=== PATIENT | male | born 1950 | race Caucasian/White ===

== ENCOUNTER 2018-04-14 06:47 | Inpatient (IN) ==
[~2018-04-14 06:47] MED LIST: Metoprolol Tartrate 25 MG Tablet PO SCH
[2018-04-14] MEDS ORDERED: Iohexol 350 MG/ML 100 ML Vial (for Cath Lab) IV.SIG ONE (06:48)
[2018-04-14 07:46] LABS: Baso # (Auto) 0.1 th/mm3 (0.0-0.2); Baso % (Auto) 1.1 % (0.0-2.0); Eos # (Auto) 0.3 th/mm3 (0.0-0.4); Hematocrit 41.5 % (39.0-51.0); Hemoglobin 14.4 gm/dL (13.0-17.0); Lymph # (Auto) 1.3 th/mm3 (1.0-4.8); Lymph % (Auto) 16.1 % (9.0-44.0); Mean Corpuscular HGB Conc 34.7 % (32.0-36.0); Mean Corpuscular Hemoglobin 30.6 pg (27.0-34.0); Mean Platelet Volume 8.4 fL (7.0-11.0); Mono # (Auto) 0.7 th/mm3 (0.0-0.9); Mono % (Auto) 8.7 % (0.0-8.0); Neut # (Auto) 5.4 th/mm3 (1.8-7.7); Neut % (Auto) 70.1 % (16.0-70.0); Platelet Count 274 th/mm3 (150-450); Red Blood Count 4.71 mil/mm3 (4.50-5.90); Red Cell Distribution Width 13.3 % (11.6-17.2); White Blood Count 7.8 th/mm3 (4.0-11.0)
[2018-04-14 07:56] LABS: Activated Partial Thrombo Time 26.7 sec (24.3-30.1); INR 1.1 Ratio
[2018-04-14 08:02] LABS: Calcium 8.9 mg/dL (8.5-10.1); Carbon Dioxide 28.3 meq/L (21.0-32.0); Potassium 4.2 meq/L (3.5-5.1)
[2018-04-14] MEDS ORDERED: Heparin/NS PF Inj 500 ML ONE (09:12)
[2018-04-14] MEDS ORDERED: fentaNYL Citrate Inj 100 MCG/2 ML Ampul ONE (09:12)
[2018-04-14] MEDS ORDERED: Heparin 10,000 UNITS/10 ML Vial (for IV use) ONE (09:13)
--- NOTE | 2018-04-14 10:35 | CATHPROC ---
[employer] HIS Report Study Information Study Number Admission Scheduled Start Study Start [id number] Apr 14 2018 6:47AM 04/14/2018 Apr 14 2018 7:46AM [facility] Service Cath Endovascular Study Admit Source Facility Department Other [facility] - [facility] Physician and Clinical Staff Initial Nitesh Herzog Training Development Director Sherly Brown RN Training Development Director Jennifer Broderick,ONEIL Recorder Karen Mendoza RCIS ScrGómez Barney,RT(R) Procedures Performed Procedure Location (Site) Vessel Name Coronary Angiograms LCA Left Coronary Coronary Angiograms RCA Right Coronary L Heart Cath Wire insertion Radial (right) Radial Art. Equipment Time Farm Or Ranch Animal Caretaker Description Size Mfg Part Number Used/Scraped TRANSDUCER, TRUWAVE [id number] 09:21 OROZCO DILL * Used W/[employer] *[id number] *[id number] 09:21 [employer] BLANKET,WARM AIR CCL * Used *[id number] 07:50 [employer] BLANKET,WARM AIR CCL * Used *[id number] 07:50 [employer] PACK, CCL CUSTOM * Used *[id number] 09:21 [employer] SUPPORT, ARTERIAL ADULT 80095 *[id number] Used 07:50 [employer] SUPPORT, ARTERIAL ADULT 56085 *[id number] Used [id number] 09:39 [employer] JL 3.5 DXTERITY CATHETER FR 5 Used *[id number] 09:51 [employer]/AVE EBU 3.5 Z2 GUIDE CATHETER FR 6 Used *[id number] BAND, RADIAL COMPRESSION TR [id number] 10:11 [employer] MEDICAL 29CM Used LARGE 29 *[id number] 07:50 [employer] MEDICAL WIRE, EXCHANGE 260CM 3MMJ 260CM Used *[id number] 07:50 NAMIC MANIFOLD, 4 PORT * Used *[id number] 09:21 NAMIC MANIFOLD, 4 PORT * Used *[id number] 09:21 [employer] OMNIPAQUE, 350 MG, 150ML 150ML [id number] Used SHEATH, FR6 TRANSRADIAL [id number] 07:50 [employer]ness[employer] MEDICAL FR 6 Used SLENDER 10CM *[id number] 09:51 [employer]OL[employer] PRIME WIRE, VERRATA 185CM 185CM Used *[id number] Equipment Model, Serial, Lot Number and Expiration Data Description Model Number Serial Number Lot Number Expiration Date GIANCARLO GOULD 185CM 26329 [id number] 03-05-2021 History: Allergies Allergy Reaction No Known Allergies History: Risk Factors Family History of Hypertension Dyslipidemia Previous [place] Previous Heart Failure Premature CAD Yes Yes No No No Prior Valve Prior PCI Prior CABG Surgery No No No Cerebrovascular Peripheral Artery Chronic Lung On Dialysis Diabetes Disease Disease Disease No No No No No History: Stress Tests Stress or Imaging Studies Performed No History: Other Current Smoker Method Years Used Yes Cigars 1 Labs Hgb (g/dl) Hct (%) WBC (l/cumm) Platelets (thousands) 11.60-17.00 35.00-51.00 4.00-11.00 150.00-450.00 14.0 41 4.7 244 Glucose (mg/dl) BUN (mg/dl) Creatinine (mg/dl) BUN:Creatinine (1:x) 74.00-106.00 7.00-18.00 0.50-1.30 10.00-20.00 116 14 1.0 14 Na (meq/l) K (meq/l) 136.00-145.00 3.50-5.10 140 4.2 INR (PTT:PT) 0.90-1.10 1.1 CPK-MB (ng/ML) 0.50-3.60 Not Drawn Medication Medication Total Dose (Bolus/Oral) Medication Total Dosage/Unit 1% XYLOCAINE 20 mL FENTANYL 25 mcg HEPARIN 4600 units RADIAL COCKTAIL 5 mL (Bolus) VERSED 0.5 mg Medications (Bolus/Oral) Medication Time Given Dosage/Unit Administered By Reason VERSED 04/14/2018 9:26:40 AM 0.5 mg Sherly Brown 0.5 mg VERSED given in lab by Sherly Brown, ONEIL via Peripheral IV. Ordered by Nitesh Rivera FENTANYL 04/14/2018 9:27:29 AM 25 mcg Sherly Brown 25 mcg FENTANYL given in lab by Sherly Brown, ONEIL via Peripheral IV. Ordered by Nitesh Rivera. 1% XYLOCAINE 04/14/2018 9:27:55 AM 20 mL Nitesh Rivera 20 mL 1% XYLOCAINE given in lab by Nitesh Rivera in Right Radial via Subcutaneous. Ordered by Nitesh Fields Ntg 200mcg Verapamil 2.5mg Heparin RADIAL COCKTAIL 04/14/2018 9:29:55 AM 5 mL (Bolus) Nitesh Rivera 3000U 5 mL (Bolus) RADIAL COCKTAIL given in lab by Nitesh Rivera via Radial. Using [Solution Name]. O rdered by Nitesh Rivera Reason: Ntg 200mcg Verapamil 2.5mg Heparin 3000U. HEPARIN 04/14/2018 9:53:50 AM 4600 units Sherly Brown 4600 units HEPARIN given in lab by Sherly Brown, RN via Peripheral IV. Ordered by Duran Rivera Medication (Drip) Medication Time Given Dosage/Unit Concentration/Unit Diluent (ml) Solution IV Solutions 04/14/2018 9:12:03 AM 50 mL (IV) 500 NaCl .9 Patient arrived on IV Solutions via Peripheral IV. Pump/Drip Flow using NaCl .9. Initial Case Assessment Cardiovascular HR NIBP Chest Pain 66 143/81 0 Edema Present Skin color Skin None Normal Warm Circulatory - Right Pulses Dorsalis Pedis Femoral Radial 2 2 2 Scale (0,1,2,3,4,d) Circulatory - Left Pulses Dorsalis Pedis Femoral Radial 2 2 Scale (0,1,2,3,4,d) Neurological State Oriented to time-place- Alert Moves all extremities person Respiration - General Respiration Rate SpO2 (%) (B/min) 20 96 Final Case Assessment Cardiovascular HR NIBP Chest Pain 67 109/60 0 Edema Present Skin color Skin None Normal Warm Circulatory - Right Pulses Dorsalis Pedis Femoral Radial 2 2 2 Scale (0,1,2,3,4,d) Circulatory - Left Pulses Dorsalis Pedis Femoral Radial 2 2 Scale (0,1,2,3,4,d) Neurological State Oriented to time-place- Alert Moves all extremities person Respiration - General Respiration Rate SpO2 (%) (B/min) 20 96 Chronological Log Time Study Chronological Log 9:05:21 Patient arrived via Bed. 9:05:22 Patient Name, D.O.B, / Armband Verified By R.N. 9:08:56 Consent signed by the physician and the patient and verified by the [facility] staff. 9:09:00 Verbal Stimulation=2 Physical Stimulation=2 Airway=2 Respiration=2 TOTAL=8. (0=absent, 1=li mited, 2=present) 9:10:09 Allens test performed on the right radial and ulnar artery. 9:10:20 Patient has been NPO for More than 6Hrs. 9:10:24 Patient Warmer Placed on the Table. 9:10:35 A # 20 IV was noted in the Antecubital (left). Grade = 0 Vitals capture started with the following parameters, Patient=Adult, Interval=5 min, Initial Pr wzwbua=116 mmHg, 9:10:52 Deflation Rate=5 mmHg, Cuff placed on Right Arm 9:11:34 HR=68 bpm, XGSJ=278/81 mmhg, SpO2=99.0 %, Resp=8 B/min, Pain=0, Kassidy=10, Carter=2 9:12:03 Patient arrived on IV Solutions via Peripheral IV. Pump/Drip Flow using NaCl .9. 9:12:44 History and physical on the chart or being dictated. Assessment: Initial Case, HR=66 BPM, KRPS=041/81 mmhg, Chest Pain=0, Edema=None, Color=Normal, Skin = Warm Right Pulses: Nick Ped=2, Femoral=2, Radial=2 9:12:46 Left Pulses: Nick Ped=2, Femoral=2 Neurological: State=Alert, Ox3, JUNG Respiration: Resp=20 B/min, SpO2=96 % 9:14:31 Right Radial and groin(s) prepped with 2% chlorhexidine, and draped after a 3 min. waiting time. 9:16:31 HR=71 bpm, OLTR=719/83 mmhg, SpO2=99.0 %, Resp=20 B/min, Pain=0, Kassidy=10, Carter=2 9:19:42 Reference ECG taken 9:21:37 HR=69 bpm, KQYI=125/66 mmhg, SpO2=97.0 %, Resp=15 B/min, Pain=0, Kassidy=10, Carter=2 9:23:34 Pressure channel 1 zeroed. 9:23:56 MD arrived. Time Out. Correct patient, correct procedure, correct physician, labs, allergies, and equipment verified with radiographer cardiac catheterization 9:26:18 team present. Fire risk assesment completed (see hard stop sheet for coding). Time Out Concu rred by MD and individual staff in procedure. 9:26:36 HR=72 bpm, OPGB=006/81 mmhg, SpO2=97.0 %, Resp=19 B/min, Pain=0, Kassidy=10, Carter=2 9:26:40 0.5 mg VERSED given in lab by Sherly Brown, RN via Peripheral IV. Ordered by Castro Rivera 9:26:43 Case Start 9::29 25 mcg FENTANYL given in lab by Sherly Brown, RN via Peripheral IV. Ordered by Nitesh Rviera 20 mL 1% XYLOCAINE given in lab by Nitesh Rivera in Right Radial via Subcutaneous. Ordere d by Miguel : Nitesh Reyes 9:28:22 Access site was Radial Artery. A SHEATH, FR6 TRANSRADIAL SLENDER 10CM FR 6 was advanced into the Radial (right) using the Perc utaneous 9:29:16 technique. 5 mL (Bolus) RADIAL COCKTAIL given in lab by Nitesh Rivera via Radial. Using [Solution Na me]. Ordered by :: Nitesh Rivera Reason: Ntg 200mcg Verapamil 2.5mg Heparin 3000U. 9:31:37 HR=79 bpm, PYCH=609/72 mmhg, SpO2=98.0 %, Resp=10 B/min, Pain=0, Kassidy=10, Carter=2 9:34:31 A WIRE, EXCHANGE 260CM 3MMJ 260CM was inserted via Radial (right). A JR 4.0 INFINITI CATHETER FR 5 was advanced over a wire. OMNIPAQUE, 350 MG, 150ML 150ML was us ed for 9:34:48 injections. 9:35:14 Wire removed Recorded Pressure: LV, HR=75, Condition=Condition 1 9:36:00 (Left Ventricle) LV 119/-7/6 9:36:32 HR=71 bpm, XUAP=987/69 mmhg, SpO2=94.0 %, Resp=42 B/min, Pain=0, Kassidy=10, Carter=2 Recorded Pressure: LV, Ao, HR=72, Condition=Condition 1 9:36:36 (Left Ventricle) LV 121/3/-2, (Aorta) Ao 95/53/72 Recorded Pressure: Ao, HR=73, Condition=Condition 1 9:37:25 (Aorta) Ao 94/56/75 9:37:40 The RCA was injected and visualized at various angles. OMNIPAQUE, 350 MG, 150ML 150ML used. After removing the current catheter a JL 3.5 DXTERITY CATHETER FR 5 was advanced over a WIRE, E XCHANGE 260CM 9:38:25 3MMJ 260CM. 9:40:59 The LCA was injected and visualized at various angles. OMNIPAQUE, 350 MG, 150ML 150ML used. 9:41:29 HR=72 bpm, LFRS=084/75 mmhg, SpO2=96.0 %, Resp=18 B/min, Pain=0, Kassidy=10, Carter=2 9:46:32 HR=76 bpm, AQCL=282/68 mmhg, SpO2=96.0 %, Resp=19 B/min, Pain=0, Kassidy=10, Carter=2 9:51:33 HR=73 bpm, IFBL=621/65 mmhg, SpO2=96.0 %, Resp=17 B/min, Pain=0, Kassidy=10, Carter=2 After removing the current catheter a EBU 3.5 Z2 GUIDE CATHETER FR 6 was advanced over a WIRE, EXCHANGE 9:52:16 260CM 3MMJ 260CM. 9:53:50 4600 units HEPARIN given in lab by Sherly Brown, ONEIL via Peripheral IV. Ordered by Nitesh Arenas 9:55:55 Flow Wire was was placed in the LAD Mid. The FFR measures ~FFR~ percent. The IFR measures 0. 9 Percent. 9:56:34 HR=70 bpm, UMZE=923/64 mmhg, SpO2=95 %, Resp=12 B/min, Pain=0, Kassidy=10, Carter=2 10:01:31 HR=66 bpm, RUNG=283/59 mmhg, SpO2=95.0 %, Resp=14 B/min, Pain=0, Kassidy=10, Carter=2 10:06:30 HR=72 bpm, EOMV=726/62 mmhg, SpO2=94 %, Resp=12 B/min, Pain=0, Kassidy=10, Carter=2 10:09:37 The PRIME WIRE, VERRATA 185CM 185CM was removed. 10:10:09 Wire removed 10:10:14 Catheter was removed 10:11:33 HR=71 bpm, WWVH=452/60 mmhg, SpO2=94.0 %, Resp=16 B/min, Pain=0, Kassidy=10, Carter=2 10:14:57 Case End (Physician broke scrub) 10:15:02 No case complications noted. Assessment: Final Case, HR=67 BPM, IBAU=305/60 mmhg, Chest Pain=0, Edema=None, Color=Normal, S kin = Warm Right Pulses: Nick Ped=2, Femoral=2, Radial=2 10:15:22 Left Pulses: Nick Ped=2, Femoral=2 Neurological: State=Alert, Ox3, JUNG Respiration: Resp=20 B/min, SpO2=96 % 10:15:56 Cine recording checked. 10:16:32 HR=68 bpm, JXRM=626/61 mmhg, SpO2=96.0 %, Resp=17 B/min, Pain=0, Kassidy=10, Carter=2 10:17:28 Vitals capture stopped. 10:17:52 Sheath removed Radial Compression Device Used. 20 mLs of air placed in BAND, RADIAL COMPRESSION TR LARGE 29 2 9CM. Affected 10:18:23 hand 97 % O2 saturation. 10:22:01 A Left Heart Cath was performed. 10:28:08 Patient moved to [facility] End Study - Contrast Media Used In Study Contrast Total Opened (mL) Total Used (mL) Total Wasted (mL) Omnipaque 100 100 0 End Study - Maximum Contrast Load Max Contrast Load (mL) 385.5 End Study - Radiation Exposure Fluoro Time (minutes) 4.7 End Study - Patient Disposition Complications Transferred To No [facility]
[2018-04-14] MEDS ORDERED: Heparin Drip 25,000 UNIT/250 ML BAG IV.CONT PRN (10:45)
--- NOTE | 2018-04-14 11:11 | MB ---
cc: Nitesh Rivera DO DATE: 04/14/2018 REASON FOR CONSULTATION: Multivessel coronary artery disease. HISTORY OF PRESENT ILLNESS: Amrik Barnes is a pleasant 67-year-old male who sees my partner, Dr. Wiley in the office and presented for elective cardiac catheterization as he has had significant chest pain. He states that around 2 weeks ago, he had chest burning and tightness in the middle of the night for 15 or 20 minutes, not like his typical indigestion, but this finally went away. He had a similar type episode around a week after this and then, 4-5 days ago, he had burning while walking his dogs. He saw Dr. Wiley and he was referred to me as there was concern for typical angina. He underwent cardiac catheterization today and was found to have multivessel disease and due to the significance of his disease, I felt that he should be admitted for a heparin drip and evaluation by CT surgery. In seeing him, he currently denies chest pain or shortness of breath and is hemodynamically stable. PAST MEDICAL HISTORY: 1. Coronary artery disease. 2. Unstable angina. 3. Hyperlipidemia. 4. Hypertension. 5. Hypothyroidism. 6. Prediabetes. 7. Bifascicular block with right bundle branch block/left anterior fascicular block. 8. Migraines. PAST SURGICAL HISTORY: Cardiac catheterization (04/14/2018) with left main 30%, proximal LAD 70%, left circumflex subtotally occluded with multiple obtuse marginals filling via collaterals, RCA 40%, ramus 70%. ALLERGIES: NO KNOWN DRUG ALLERGIES. MEDICATIONS: 1. Aspirin 81 mg daily. 2. Crestor 20 mg daily. 3. Metoprolol succinate 25 mg daily. 4. Norvasc 5 mg daily. 5. Amitriptyline 25 mg daily. 6. Synthroid 25 mcg daily. 7. Nitro sublingual as needed. FAMILY HISTORY: Grandfather had a myocardial infarction at the age of 93. He has multiple brothers who have undergone stents and bypass in their late 60s and early 70s. SOCIAL HISTORY: The patient drinks a few times a week. He will rarely have a cigar. REVIEW OF SYSTEMS: Fourteen systems were reviewed including osteopathic pertinent positives and negatives as above, otherwise negative. PHYSICAL EXAMINATION: VITAL SIGNS: Temperature 98.0, heart rate 70, blood pressure 142/78, respirations 16, pulse oximetry 98% on room air. GENERAL: The patient appears well, in no acute distress. Alert, awake and oriented x 3. HEENT: Extraocular muscles intact. Mucous membranes moist. NECK: Supple with no JVD at 45 degrees. No carotid bruits heard bilaterally. Carotid upstroke is brisk in nature. HEART: Regular rate and rhythm. Positive first and second heart sounds, but no known murmurs, gallops or rubs. LUNGS: Clear to auscultation bilaterally. No wheezes, rales or rhonchi. ABDOMEN: Soft, nontender, nondistended. No organomegaly noted. EXTREMITIES: Show no clubbing, cyanosis or edema. Femoral and distal pulses intact bilaterally. NEUROLOGIC: No focal deficits. SKIN: Warm, dry and intact. OSTEOPATHIC: No kyphoscoliosis, lordosis or paraspinal tender points. LABORATORY DATA: Hemoglobin 14.4, hematocrit 41.5, platelets 274. Potassium 4.2, BUN 14, creatinine 1.03. EKG: Electrocardiogram (04/14/2018 at 0746): Sinus rhythm, left axis deviation, right bundle branch block, left anterior fascicular block. IMPRESSIONS: 1. Unstable angina. 2. Multivessel coronary artery disease. 3. History of migraines. 4. Bifascicular block. 5. Hyperlipidemia. 6. Hypertension. RECOMMENDATIONS: 1. Mr. Barnes presented with unstable angina for an elective cardiac catheterization. Because he was found to have multivessel disease, an overall concern for a subtotal occlusion of his left circumflex, which supplies multiple obtuse marginals, I feel that he should be admitted to the hospital and placed on a heparin drip. 2. CT surgery has been consulted for consideration of coronary artery bypass grafting. 3. He does have an echo in the office recently and we will add that to the chart for further information. 4. Further recommendations will be made based on the hospital course. Thank you for allowing me to see Amrik Barnes. If there are any questions, please do not hesitate to call. Nitesh Rivera, VGP/DL , 10:43 AM , 11:09 AM
--- NOTE | 2018-04-14 15:47 | P.PNCA ---
- Note Subjective/Hospital Course: pt seen and evaluated / full consult to follow multivessel disease / scheduled for surgery 04/16 sts discussed with pt RISK SCORES About the STS Risk Calculator Procedure: CAB Only Risk of Mortality: 0.781% Morbidity or Mortality: 8.369% Long Length of Stay: 2.694% Short Length of Stay: 60.895% Permanent Stroke: 0.727% Prolonged Ventilation: 5.484% DSW Infection: 0.254% Renal Failure: 1.576% Reoperation: 3.942% Objective: Vital Signs - 24 hr 04/14/18 07:30 04/14/18 10:44 04/14/18 14:29 Temperature 98 F 98.7 F Pulse Rate 70 69 Respiratory Rate 16 18 Blood Pressure 142/78 H 136/79 Pulse Oximetry 98 97 99 04/14/18 15:27 Temperature 98.7 F Pulse Rate 71 Respiratory Rate 20 Blood Pressure 131/77 Pulse Oximetry 98 Labs: Laboratory Results - last 12 hr 04/14/18 04/14/18 04/14/18 07:27 07:27 07:27 WBC 7.8 RBC 4.71 Hgb 14.4 Hct 41.5 MCV 88.0 MCH 30.6 MCHC 34.7 RDW 13.3 Plt Count 274 MPV 8.4 Neut % (Auto) 70.1 H Lymph % (Auto) 16.1 Rooks % (Auto) 8.7 H Eos % (Auto) 4.0 Baso % (Auto) 1.1 Neut # (Auto) 5.4 Lymph # (Auto) 1.3 Rooks # (Auto) 0.7 Eos # (Auto) 0.3 Baso # (Auto) 0.1 WBC Differential . Differential Comment Auto diff final PT 11.0 INR 1.1 APTT 26.7 Sodium 140 Potassium 4.2 Chloride 105 Carbon Dioxide 28.3 Anion Gap 7 BUN 14 Creatinine 1.03 Estimated GFR 72 L Random Glucose 116 H Calcium 8.9 Result Diagrams: 04/14/18 07:27 04/14/18 07:27
[2018-04-14] MEDS ORDERED: Dextrose 50% in Water 50 ML Vial IV.PUSH PRN (16:01)
[2018-04-14] MEDS ORDERED: Insulin Regular (For Infusion) 100 UNIT in Sodium Chlor 0.9% Inj 99 ML IV.CONT PRN (16:01)
[2018-04-14] MEDS ORDERED: Sodium Chloride 0.9% Irr Bot 500 ML, ceFAZolin Inj 500 MG IRRIGATION SCH ×2 (16:15)
[2018-04-14] MEDS ORDERED: Chlorhexidine 4% Topical 120 APPLIC/120 ML Bottle TOPICAL SCH (16:15)
[2018-04-14] MEDS ORDERED: Sodium Chlor 0.9% Inj 77.5 ML, Papaverine Inj 60 MG, Nitroglycerin Inj 100 MCG, dilTIAZ... IRRIGATION SCH ×3 (16:15)
--- NOTE | 2018-04-14 16:43 | ECG ---
Date Performed: 04/14/2018 Time Performed: 07:46:24 PTAGE: 67 years EKG: Sinus rhythm . Left axis deviation RBBB with left anterior fascicular block Left ventricular hypertrophy Abnormal ECG NO PREVIOUS TRACING DOCTOR: Steve Mireles Interpretating Date/Time 04/14/2018 16:40:19
[2018-04-14] MEDS ORDERED: ceFAZolin Inj 2,000 MG in Sodium Chlor 0.9% Inj 80 ML IV.SIG SCH (17:00)
[2018-04-14 18:30] LABS: Bilirubin,Urine Negative (Negative); Clarity,Urine Clear (Clear); Color,Urine Straw (Yellw/Straw); Glucose,Urine (UA) Negative (Negative); Leukocyte Esterase,Urine Negative (Negative); Mucus,Urine Few /lpf (Occasional); Nitrite,Urine Negative (Negative); Specific Gravity,Urine 1.021 (1.002-1.035)
[2018-04-14] MEDS: Amitriptyline 25 MG Tablet PO SCH (18:37)
--- NOTE | 2018-04-14 20:45 | XR ---
EXAM DATE: 04/14/2018 8:39 PM EDT AGE/SEX: 67 years / Male INDICATIONS: Evaluate for pneumonia, pneumothorax and communicable disease. Pre-op, cardic surgery. CLINICAL DATA: This is the patient's initial encounter. Patient reports that signs and symptoms have been present for 1 day and indicates a pain score of 0/10. MEDICAL/SURGICAL HISTORY: None. None. COMPARISON: No prior exams available for comparison. FINDINGS: PA and lateral views of the chest demonstrate the lungs to be symmetrically aerated without evidence of mass, infiltrate or effusion. The cardiomediastinal contours are unremarkable. Osseous structures are intact. CONCLUSION: No evidence of acute cardiopulmonary disease. Electronically signed by: Natalio Olvera MD 04/14/2018 8:44 PM EDT
--- NOTE | 2018-04-14 20:46 | US ---
EXAM DATE: 04/14/2018 8:10 PM EDT AGE/SEX: 67 years / Male INDICATIONS: Pre-op for cardiac surgery. CLINICAL DATA: This is the patient's initial encounter. Patient reports that signs and symptoms have been present for 1 day and indicates a pain score of 0/10. MEDICAL/SURGICAL HISTORY: Hypothyroidism. Hypertension. Angina. CAD. Hyperlipidemia. Pre-lisbeth betes. Migraines. . Cardiac catheterization. COMPARISON: [facility], US ECHOCARDIOGRAM, 10/14/2016. . VELOCITY PARAMETERS: ICA/CCA Ratio: Right 1.4 , Left 1.7 ICA: Right 157 cm/sec, Left 214 cm/sec CCA: Right 111 cm/sec, Left 124 cm/sec ECA: Right 87 cm/sec, Left 107 cm/sec Vertebral: Right 75 cm/sec antegrade, Left 125 cm/sec antegrade FINDINGS: Right Carotid: No significant plaque is visualized.The waveforms are within normal limits. Left Carotid: No significant plaque is visualized. The waveforms are within normal limits. Other: None. CONCLUSION: 1. Right Internal Carotid Artery: No significant plaque or narrowing. 2. Left Internal Carotid Artery: No significant plaque or narrowing. Electronically signed by: Natalio Olvera MD 04/14/2018 8:44 PM EDT
--- NOTE | 2018-04-14 20:51 | US ---
EXAM DATE: 04/14/2018 8:14 PM EDT AGE/SEX: 67 years / Male INDICATIONS: Pre-op for cardiac surgery. CLINICAL DATA: This is the patient's initial encounter. Patient reports that signs and symptoms have been present for 1 day and indicates a pain score of 0/10. MEDICAL/SURGICAL HISTORY: Hypothyroidism. Hypertension. Angina. CAD. Hyperlipidemia. Pre-lisbeth betes. . Cardiac stent. COMPARISON: No prior exams available for comparison. TECHNIQUE: Venous ultrasound of both lower extremities was performed from the inguinal ligament to t he proximal calf. Real-time, color Doppler and spectral tracing, compression and augmentation techni ques were used. FINDINGS: Right Leg: Normal compression of the deep venous system from the inguinal region to the proximal alcon f. No echogenic clot is seen. Normal response of the venous system to augmentation and respiration. Left Leg: Normal compression of the deep venous system from the inguinal region to the proximal calf . No echogenic clot is seen. Normal response of the venous system to augmentation and respiration. Other: None. CONCLUSION: Negative study. No venous thrombosis of either lower extremity. Electronically signed by: Natalio Olvera MD 04/14/2018 8:49 PM EDT
--- NOTE | 2018-04-14 20:52 | US ---
EXAM DATE: 04/14/2018 8:18 PM EDT AGE/SEX: 67 years / Male INDICATIONS: Pre-op for cardiac surgery. CLINICAL DATA: This is the patient's initial encounter. Patient reports that signs and symptoms have been present for 1 day and indicates a pain score of 0/10. MEDICAL/SURGICAL HISTORY: Hypothyroidism. Hypertension. Angina. . Cardiac stent. COMPARISON: No prior exams available for comparison. MEASUREMENTS: RIGHT THIGH: Proximal:__6 mm Mid:__ 3 mm Distal:__Non-visualized LEFT THIGH: Proximal:__2 mm Mid:__2 mm Distal:__Non-visualized RIGHT CALF: Proximal:__5 mm Mid:__4 mm Distal:__4 mm LEFT CALF: Proximal:__2 mm Mid:__3 mm Distal:__2 mm FINDINGS: The venous system of the lower extremities are patent by color Doppler imaging. Measurements of the leg veins (in mm) are listed above. CONCLUSION: Greater saphenous vein measurements as above. Electronically signed by: Natalio Olvera MD 04/14/2018 8:51 PM EDT
[2018-04-14 21:54] LABS: Hemoglobin A1c 5.6 % (4.3-6.0)
[2018-04-14] MEDS: Mupirocin 2% Nasal Oint Topical Syringe EACH NARE SCH (22:30)
--- NOTE | 2018-04-14 23:27 | MA ---
cc: Nitesh Rivera Vincent G DO DATE: 04/14/2018 PROCEDURE: Left heart catheterization, coronary angiogram, moderate sedation 40 minutes, IFR LAD. PREPROCEDURE DIAGNOSIS: Unstable angina on multiple antianginals, suspected significant coronary artery disease. POSTPROCEDURE DIAGNOSIS: Multivessel coronary artery disease, unstable angina. MEDICATIONS: 1. Versed 0.5 mg. 2. Fentanyl 25 mcg. 3. Verapamil 2.5 mg. 4. Nitro 200 mcg. 5. Heparin 6600 units. CONTRAST USED: 100 mL FLUOROSCOPY: 4.7 minutes. MODERATE SEDATION: 40 minutes. FRAILTY SCORE: 3. ESTIMATED BLOOD LOSS: 10 mL PROCEDURAL SUMMARY: Amrik Barnes is a pleasant 67-year-old male who sees my partner, Dr. Wiley, in the office and was recommended cardiac catheterization due to typical angina on multiple antianginals. Risks, benefits and alternatives were explained to him and he consented as such. He was brought to the lab and prepped in the usual sterile fashion. The right radial artery was accessed using a modified Seldinger technique and placement of a 5/6 Argentine slender sheath. This was easily aspirated and flushed. A JR4 was advanced over a J-wire to the ascending aorta and across the aortic valve for measurement of left ventricular pressure. This was pulled back across the aortic valve showing no significant gradient of aortic stenosis. A JR4 was used for selective angiography of the right coronary artery system. This is exchanged out for a JL3.5, which was used for selective angiography of the left coronary artery system. There was significant disease of the ramus and obtuse marginal and at least moderate disease of the LAD and I felt that this should be further investigated as if this is significant, he should be considered for coronary artery bypass grafting instead of PCI involving the ramus and obtuse marginal. The patient was given heparin as an anticoagulant. An EBU 3.5 guide was engaged in the left main. A Prowater wire was advanced into the distal LAD. IFR was measured at 0.87, showing significant stenosis. This was pulled back to the left main and IFR returned to 1.0. The wire was removed. Final angiogram shows no disruption of the coronary anatomy. FINDINGS: LEFT MAIN: Large vessel with adequate reflux. It trifurcates into an LAD, ramus and circumflex. LAD: Normal sized vessel with 70% stenosis in the proximal portion. This is a long tubular lesion and in the mid portion no significant disease. It gives off 1 small diagonal with no significant disease. RAMUS: Normal-sized vessel with 50% disease in the proximal portion, which then bifurcates into an upper and lower branch. Upper branch is larger and has a 70% lesion. Lateral branch is overall smaller with no significant disease. LEFT CIRCUMFLEX: Normal-sized vessel with mild luminal irregularity throughout the proximal portion. The mid portion is subtotally occluded with MARTY I flow. Distally, there is [id number] collaterals which supplies 2 obtuse marginals. RCA: Normal-sized vessel with mild tortuosity. The mid to distal portion has a 50% lesion. Distally, it supplies the PDA as well as 2 posterolateral branches with the first one having a 90% lesion, but is overall a small vessel with little myocardium. It also does supply collaterals to a distal obtuse marginal. LVEDP 13. IMPRESSION: 1. Unstable angina. 2. Multivessel coronary artery disease. 3. Hypertension. 4. Hyperlipidemia. RECOMMENDATIONS: 1. Mr. Barnes presented in the office with unstable angina and, during his cardiac catheterization, was found to have multivessel disease. 2. Due to the significance of the disease in his left circumflex, which has MARTY I flow, I believe that he should be admitted to the hospital and placed on a heparin drip and CT surgery should be consulted. 3. Heparin drip will be started 1 hour after TR band removed. 4. Case has been discussed with CT surgery. 5. He recently had an echocardiogram in the office and we will obtain the results from this. 6. Further recommendations will be made based on the hospital course. Thank you for allowing me to see Amrik Banres. If there are any questions, please do not hesitate to call. DO RONNI French/ , 11:00 PM , 11:26 PM
[2018-04-15] MEDS ORDERED: Heparin 10,000 UNITS/10 ML Vial (for IV use) IV.PUSH PRN ×4 (02:09→07:09)
[2018-04-15] MEDS: Sod Chloride 0.9% Inj 1,000 ML IV.SIG SCH ×2 (02:19→12:16)
[2018-04-15 05:08] LABS: Baso # (Auto) 0.1 th/mm3 (0.0-0.2); Baso % (Auto) 0.9 % (0.0-2.0); Eos # (Auto) 0.3 th/mm3 (0.0-0.4); Eos % (Auto) 3.8 % (0.0-4.0); Hematocrit 39.5 % (39.0-51.0); Hemoglobin 13.9 gm/dL (13.0-17.0); Lymph # (Auto) 2.1 th/mm3 (1.0-4.8); Lymph % (Auto) 24.7 % (9.0-44.0); Mean Corpuscular HGB Conc 35.2 % (32.0-36.0); Mean Corpuscular Hemoglobin 31.3 pg (27.0-34.0); Mean Corpuscular Volume 88.8 fL (80.0-100.0); Mean Platelet Volume 8.4 fL (7.0-11.0); Mono # (Auto) 0.7 th/mm3 (0.0-0.9); Mono % (Auto) 8.3 % (0.0-8.0); Neut # (Auto) 5.2 th/mm3 (1.8-7.7); Neut % (Auto) 62.3 % (16.0-70.0); Platelet Count 267 th/mm3 (150-450); Red Blood Count 4.45 mil/mm3 (4.50-5.90); Red Cell Distribution Width 13.5 % (11.6-17.2); White Blood Count 8.4 th/mm3 (4.0-11.0)
[2018-04-15 05:29] LABS: Calcium 9.1 mg/dL (8.5-10.1); Carbon Dioxide 27.1 meq/L (21.0-32.0); Potassium 4.1 meq/L (3.5-5.1)
[2018-04-15] MEDS: Mupirocin 2% Nasal Oint Topical Syringe EACH NARE SCH ×2 (08:52→22:19)
[2018-04-15] MEDS: amLODIPine 5 MG Tablet PO SCH (08:54)
[2018-04-15] MEDS: Amitriptyline 25 MG Tablet PO SCH ×2 (08:56→23:12)
[2018-04-15] MEDS ORDERED: Amitriptyline 25 MG Tablet PO SCH (09:00)
[2018-04-15] MEDS ORDERED: ceFAZolin 2 GM Premix Inj 2 GM/50 ML PIGGYBACK IV.SIG SCH (09:45)
[2018-04-15] MEDS ORDERED: Sodium Chlor 0.9% Inj 57.5 ML, Papaverine Inj 60 MG, Nitroglycerin Inj 100 MCG, Verapam... IRRIGATION SCH ×3 (10:00)
--- NOTE | 2018-04-15 12:35 | P.PNCA ---
- Note Subjective/Hospital Course: pt doing well , no chest pain . for surgery in am Objective: Vital Signs - 24 hr 04/14/18 14:29 04/14/18 15:27 04/14/18 15:29 Temperature 98.7 F 98.7 F 98.7 F Pulse Rate 69 71 80 Respiratory Rate 18 20 20 Blood Pressure 136/79 131/77 154/77 H Pulse Oximetry 99 98 99 04/14/18 16:29 04/14/18 17:29 04/14/18 19:00 Temperature 98.2 F 98.2 F 97.9 F Pulse Rate 78 83 75 Respiratory Rate 20 20 18 Blood Pressure 116/71 116/74 145/79 H Pulse Oximetry 100 100 99 04/14/18 20:00 04/14/18 21:00 04/14/18 22:00 Temperature Pulse Rate 82 70 80 Respiratory Rate Blood Pressure Pulse Oximetry 04/14/18 23:00 04/15/18 00:00 04/15/18 01:00 Temperature 98.5 F Pulse Rate 67 68 66 Respiratory Rate 18 Blood Pressure 129/79 Pulse Oximetry 95 04/15/18 02:00 04/15/18 03:00 04/15/18 04:00 Temperature 98.7 F Pulse Rate 60 63 60 Respiratory Rate 16 Blood Pressure 105/64 Pulse Oximetry 97 04/15/18 05:00 04/15/18 06:00 04/15/18 07:00 Temperature Pulse Rate 67 65 75 Respiratory Rate Blood Pressure Pulse Oximetry 04/15/18 08:00 04/15/18 09:00 04/15/18 10:00 Temperature 99.0 F Pulse Rate 70 83 74 Respiratory Rate 16 Blood Pressure 130/82 Pulse Oximetry 97 04/15/18 10:03 04/15/18 11:00 04/15/18 11:37 Temperature 99.4 F Pulse Rate 72 71 Respiratory Rate 16 16 Blood Pressure 126/74 Pulse Oximetry 04/15/18 12:00 Temperature Pulse Rate 72 Respiratory Rate Blood Pressure Pulse Oximetry GENERAL: SKIN: Warm and dry. HEAD: Normocephalic. EYES: No scleral icterus. No injection or drainage. NECK: Supple, trachea midline. No JVD or lymphadenopathy. CARDIOVASCULAR: Regular rate and rhythm without murmurs, gallops, or rubs. RESPIRATORY: Breath sounds equal bilaterally. No accessory muscle use. GASTROINTESTINAL: Abdomen soft, non-tender, nondistended. MUSCULOSKELETAL: No cyanosis, or edema. BACK: Nontender without obvious deformity. No CVA tenderness. Labs: Laboratory Results - last 12 hr 04/15/18 04/15/18 04/15/18 00:18 04:47 04:47 WBC 8.4 RBC 4.45 L Hgb 13.9 Hct 39.5 MCV 88.8 MCH 31.3 MCHC 35.2 RDW 13.5 Plt Count 267 MPV 8.4 Neut % (Auto) 62.3 Lymph % (Auto) 24.7 Moore % (Auto) 8.3 H Eos % (Auto) 3.8 Baso % (Auto) 0.9 Neut # (Auto) 5.2 Lymph # (Auto) 2.1 Moore # (Auto) 0.7 Eos # (Auto) 0.3 Baso # (Auto) 0.1 WBC Differential . Differential Comment Auto diff final APTT 34.3 H D Sodium 140 Potassium 4.1 Chloride 105 Carbon Dioxide 27.1 Anion Gap 8 BUN 10 Creatinine 0.93 Estimated GFR 81 L Random Glucose 113 H Calcium 9.1 Blood Type Antibody Screen MTS Gel Crossmatch 04/15/18 04/15/18 10:10 10:10 WBC RBC Hgb Hct MCV MCH MCHC RDW Plt Count MPV Neut % (Auto) Lymph % (Auto) Moore % (Auto) Eos % (Auto) Baso % (Auto) Neut # (Auto) Lymph # (Auto) Moore # (Auto) Eos # (Auto) Baso # (Auto) WBC Differential Differential Comment APTT 43.5 H D Sodium Potassium Chloride Carbon Dioxide Anion Gap BUN Creatinine Estimated GFR Random Glucose Calcium Blood Type A Negative Antibody Screen Negative MTS Gel Crossmatch See Detail Result Diagrams: 04/15/18 04:47 04/15/18 04:47 - Plan (1) CAD (coronary artery disease), [place] coronary artery Plan: ASA, statin , BB for surgery in am
--- NOTE | 2018-04-15 12:51 | MB ---
cc: Kary Valdes Jacqueline R ARNP DATE: 04/15/2018 DATE OF : 1950 PRIMARY CARE PHYSICIAN: Dr. Robina Barnes DO [employer] PROCESSOR: Shelby Wiley MD HISTORY OF PRESENT ILLNESS: A 67-year-old male who was complaining of some chest pain, burning dull pain a couple weeks ago and it reoccurred. He underwent an echocardiogram that showed ejection fraction 55%, some subtle inferior posterior wall motion abnormality. He was then electively brought in for a heart catheterization which showed proximal LAD of 70%, the circumflex was 99%, the OM 99%, the ramus 70%. We were consulted for multivessel coronary disease. PAST MEDICAL HISTORY: Includes depression, hyperlipidemia, hypertension, hypothyroidism, right bundle branch block. He does have some migraine headaches. PAST SURGICAL HISTORY: No prior surgery. ALLERGIES: NO KNOWN ALLERGIES. HOME MEDICATIONS: Include: 1. Amitriptyline. 2. Amlodipine. 3. Levothyroxine. 4. Metoprolol. 5. Crestor. FAMILY HISTORY: Father alive at 99, has a pacemaker. Mother in her 40s from cancer. Has an older brother that had recent bypass in his 70s. SOCIAL HISTORY: The patient is single, no children. Retired from business aviation. Smoked for 20 years, quit 30 years ago. Drinks 1-1/2 to 3 ounces of alcohol per day. REVIEW OF SYSTEMS: GENERAL: No night sweats, fever, heat and cold intolerance. SKIN: No psoriasis, itching or hives. HEENT: No blurred vision, hearing loss. RESPIRATORY: No cough, shortness of breath. CARDIOVASCULAR: As above in the HPI. GASTROINTESTINAL: No diarrhea or vomiting. GENITOURINARY: No burning, frequency, urgency. CENTRAL NERVOUS SYSTEM: No history of TIA, CVA or seizure disorder. PHYSICAL EXAMINATION: VITAL SIGNS: He is afebrile. Blood pressure 126/70, heart rate is 70 on room air. GENERAL: The patient is awake, alert, in no acute distress. HEENT: Head is normocephalic, atraumatic. Pupils equal and reactive. Oral mucosa pink, moist. NECK: Supple. No JVD. HEART: Sounds S1, S2. Regular rate and rhythm. No audible rubs, murmurs or gallops. LUNGS: Clear to auscultation. No wheezes, rales or rhonchi. ABDOMEN: Soft, nontender. No masses or organomegaly. EXTREMITIES: No cyanosis, clubbing, or edema. LABORATORY DATA: Shows hemoglobin 13, hematocrit 39, white cell count 8.4, platelet count of 267. Sodium 140, potassium 4.1, BUN of 10, creatinine 0.93. Hemoglobin A1c 5.6. INR 1.1. Urinalysis is unremarkable. MRSA screen non-detected. IMAGING STUDIES: Venous Doppler of the lower extremities: No evidence of DVT. He has good vein for harvesting. Carotid ultrasound is unremarkable. IMPRESSION: A 67-year-old male with multivessel coronary artery disease, ejection fraction of 55%. The coronary films are being evaluated by Dr. Bhakti Pizarro. PLAN: Procedure, alternatives and risks discussed with the patient. The patient is agreeable to proceed. We will schedule for for a coronary artery bypass graft x3. STS data will be documented in the electronic record. LEO Strange MD JRT/GALILEO , 12:32 PM , 12:50 PM
--- NOTE | 2018-04-15 14:31 | P.HPIM ---
History of Present Illness Service: [facility] Primary Care Physician: Sami Barnes DO Chief Complaint: POSITIVE UNSTABLE ANGINA AND CHEST PAIN- NEEDING A CARDIAC CATH History of Present Illness: Patient is a 67-year-old gentleman who came into the hospital as a direct admission for cardiac catheterization has history of multivessel coronary artery disease was seen by Dr. DAVIS and sent in for cardiac catheterization. Had the cardiac catheterization yesterday by Dr. Rivera. 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 Migraines Past surgical history is significant for the cardiac catheterization with left main of 30% proximal LAD of 70% left circumflex is subtotally occluded with multiple obtuse marginal filling via collaterals RCA 40% ramus of 70% Allergies no known drug allergies His home medications included aspirin 81 mg daily Crestor 20 mg daily Metoprolol succinate 25 mg daily Norvasc 5 mg daily Amitriptyline 25 mg daily Synthroid 25 MCG's daily Nitro sublingual as needed Family history significant for grandfather having myocardial infarction at the age of 93 Multiple brothers who have undergone stents and bypass in her late 60s and early 70s Social history drinks a few times a weeks occasional cigar Inpatient Certification: I certify that the inpatient services were ordered in accordance with Medicare regulations governing the order. This includes certification that hospital inpatient services are reasonable and necessary and in the case of services not specified as inpatient-only under 42 CFR 419.22(n), that they are appropriately provided as inpatient services in accordance to with the 2-midnight benchmark under 43 CFR 412.3(e) Estimated Total Length of Stay (Days): 10 Plans for Post Hospital Care: Not yet determined Review of Systems All other systems reviewed negative except as stated in HPI Constitutional: Denies anorexia, Denies fatigue, Denies malaise Eyes: Denies blind spots, Denies discharge Ears, Nose, Mouth, and Throat: Denies abnormal hearing, Denies difficulty swallowing, Denies facial pain, Denies mouth lesions, Denies nasal obstruction, Denies pain with swallowing Cardiovascular: Reports chest pain, Denies fainting, Denies irregular heart rhythm, Denies lightheadedness, Denies rapid, pounding, or irregular heartbeat, Denies shortness of breath with activity, Denies shortness of breath causing sudden awakening Respiratory: Denies change in phlegm color, Denies excessive phlegm production, Denies shortness of breath, Denies wheezing Gastrointestinal: Denies abdominal pain, Denies bright, red blood in stools, Denies change in stools, Denies difficulty swallowing, Denies incontinent of stools, Denies vomiting blood Genitourinary: Denies blood in semen, Denies difficulty with ejaculations, Denies painful urination, Denies penile discharge, Denies urinary frequency Musculoskeletal: Denies abnormal walking, Denies joint pain, Denies muscle cramps Skin/Breast: Denies acne, Denies change in skin color, Denies hair loss, Denies non-healing lesions Neurologic: Denies abnormal hearing, Denies behavioral changes, Denies frequent falls, Denies loss of vision, Denies radiating pain Psychiatric: Denies abnormal sleep pattern, Denies change in sex drive, Denies hearing things others do not hear, Denies memory loss, Denies seeing things others do not see Endocrine: Denies cold intolerance, Denies increased hunger, Denies rapid, pounding, or irregular heartbeat Hematologic/Lymphatic: Denies easy bleeding, Denies easy bruising, Denies enlarged lymph nodes Allergic/Immunologic: Denies GI upset with certain foods, Denies seasonal runny nose, Denies throat swelling PMFSH - History History Provided By: Patient - Medical History Medical History: Medical History (Last Updated 04/15/18 @ 14:27 by Jono Serna DO) Coronary artery disease Hyperlipidemia Hypertension Hypothyroid Migraine - Surgical History Surgical History: Surgical History (Last Updated 04/15/18 @ 14:28 by Jono Serna DO) S/P cardiac catheterization - Tobacco History Second Hand Smoke Exposure: No Tobacco Use In Past 30 Days: No Smoking Status: Former smoker Tobacco Type: Cigarettes - Alcohol History How Often Do You Have a Drink Containing Alcohol: 4 or more times a week - Substance Use History Substance History: No History of Abuse - Travel History History of Recent Travel: No Recent Travel in the [facility] Within the Last 8 Weeks: No Recent Travel Out of the Country Within the Last 8 Weeks: No Medications and Allergies Active Medications: Active Medications Amitriptyline HCl (Elavil) 25 mg PO DAILY [facility] Last Admin: 04/15/18 08:56 Dose: Not Given Amlodipine Besylate (Norvasc) 5 mg PO DAILY [facility] Last Admin: 04/15/18 08:54 Dose: 5 mg Atorvastatin Calcium (Lipitor) 40 mg PO DAILY@2100 [facility] Last Admin: 04/14/18 22:26 Dose: 40 mg Chlorhexidine Gluconate (Hibiclens 4% Topical) 1 applicatio [employer] [facility] Stop: 04/20/18 16:01 Sodium Chloride 500 ml/ (Cefazolin Sodium 500 mg) 0 ml IRR[employer]ATION [employer] CASE MANAGER [facility] Stop: 04/20/18 16:04 Sodium Chloride 57.5 ml/Papaverine HCl 60 mg/Nitroglycerin 100 mcg/Verapamil HCl 100 mg 0 ml IRRIGATION [employer] CASE MANAGER [facility] Stop: 04/20/18 16:01 Dextrose (D50w Vial) 50 ml IV.PUSH UNSCH PRN PRN Reason: PER HYPOGLYCEMIA PROTOCOL Heparin Sodium (Porcine) (Heparin Inj) 2,500 units IV.PUSH UNSCH PRN PRN Reason: aPTT 25-39 Last Admin: 04/15/18 02:19 Dose: 2,500 units Heparin Sodium (Porcine) (Heparin Inj) 5,000 units IV.PUSH UNSCH PRN PRN Reason: aPTT < 25 Heparin Sodium/Dextrose (Heparin/D5w 25,000 U/250 Ml) 25,000 unit in 250 mls @ 9 mls/hr IV.CONT TITRATE PRN; Protocol PRN Reason: Per Protocol Last Titration: 04/15/18 10:10 Dose: 1,000 units/hr, 10 mls/hr Sodium Chloride (Ns Inj) 1,000 mls @ 30 mls/hr IV.SIG .Q24H [facility] Last Admin: 04/15/18 12:16 Dose: Not Given Insulin Human Regular 100 unit (/ Sodium Chloride) 100 mls @ 3 mls/hr IV.CONT TITRATE PRN; Protocol PRN Reason: See Protocol Cefazolin Sodium/Dextrose (Ancef 2 Gm Premix Inj) 2 gm in 50 mls @ 200 mls/hr IV.SIG [employer] CASE MANAGER [facility] Levothyroxine Sodium (Synthroid) 25 mcg PO DAILY@0600 [facility] Last Admin: 04/15/18 05:29 Dose: 25 mcg Metoprolol Succinate (Toprol Xl) 25 mg PO DAILY [facility] Last Admin: 04/15/18 08:54 Dose: 25 mg Metoprolol Tartrate (Lopressor) 12.5 mg PO [employer] CASE MANAGER [facility] Stop: 04/20/18 16:04 Mupirocin (Bactroban 2% Nasal Oint) 1 applicatio EACH NARE BID [facility] Stop: 04/18/18 16:04 Last Admin: 04/15/18 08:52 Dose: 1 applicatio Oxycodone/Acetaminophen (Percocet 5/325 Mg) 2 tab PO Q4H PRN PRN Reason: PAIN SCALE 5 TO 10 Last Admin: 04/15/18 08:54 Dose: 2 tab Oxycodone/Acetaminophen (Percocet 5/325 Mg) 1 tab PO Q4H PRN PRN Reason: PAIN SCALE 1 TO 4 Last Admin: 04/14/18 22:37 Dose: 1 tab Sodium Chloride (Ns Flush) 2 ml IV.FLUSH BID [facility] Last Admin: 04/15/18 10:02 Dose: Not Given Sodium Chloride (Ns Flush) 2 ml IV.FLUSH PRN PRN PRN Reason: FLUSH AFTER USING IV ACCESS Sodium Chloride (Ns Flush) 2 ml IV.FLUSH BID [facility] Last Admin: 04/15/18 10:02 Dose: Not Given Sodium Chloride (Ns Flush) 2 ml IV.FLUSH PRN PRN PRN Reason: FLUSH AFTER USING IV ACCESS Allergies Allergy/AdvReac Type Severity Reaction Status Date / Time No Known Allergies Allergy Unverified 04/14/18 07:21 Home Medications Medication Instructions Recorded Confirmed Type amitriptyline 25 mg PO DAILY 04/14/18 04/14/18 History amlodipine 5 mg PO DAILY 04/14/18 04/14/18 History levothyroxine 25 mcg PO DAILY 04/14/18 04/14/18 History metoprolol succinate 25 mg PO DAILY 04/14/18 04/14/18 History rosuvastatin 20 mg PO DAILY 04/14/18 04/14/18 History Exam Vital signs: Vital Signs 04/14/18 14:29 04/14/18 15:27 04/14/18 15:29 Temperature 98.7 F 98.7 F 98.7 F Pulse Rate 69 71 80 Respiratory Rate 18 20 20 Blood Pressure 136/79 131/77 154/77 H Pulse Oximetry 99 98 99 04/14/18 16:29 04/14/18 17:29 04/14/18 19:00 Temperature 98.2 F 98.2 F 97.9 F Pulse Rate 78 83 75 Respiratory Rate 20 20 18 Blood Pressure 116/71 116/74 145/79 H Pulse Oximetry 100 100 99 04/14/18 20:00 04/14/18 21:00 04/14/18 22:00 Temperature Pulse Rate 82 70 80 Respiratory Rate Blood Pressure Pulse Oximetry 04/14/18 23:00 04/15/18 00:00 04/15/18 01:00 Temperature 98.5 F Pulse Rate 67 68 66 Respiratory Rate 18 Blood Pressure 129/79 Pulse Oximetry 95 04/15/18 02:00 04/15/18 03:00 04/15/18 04:00 Temperature 98.7 F Pulse Rate 60 63 60 Respiratory Rate 16 Blood Pressure 105/64 Pulse Oximetry 97 04/15/18 05:00 04/15/18 06:00 04/15/18 07:00 Temperature Pulse Rate 67 65 75 Respiratory Rate Blood Pressure Pulse Oximetry 04/15/18 08:00 04/15/18 09:00 04/15/18 10:00 Temperature 99.0 F Pulse Rate 70 83 74 Respiratory Rate 16 Blood Pressure 130/82 Pulse Oximetry 97 04/15/18 10:03 04/15/18 11:00 04/15/18 11:37 Temperature 99.4 F Pulse Rate 72 71 Respiratory Rate 16 16 Blood Pressure 126/74 Pulse Oximetry 04/15/18 12:00 04/15/18 13:00 04/15/18 14:00 Temperature Pulse Rate 72 74 68 Respiratory Rate Blood Pressure Pulse Oximetry Intake & Output 04/14/18 04/15/18 04/15/18 18:59 06:59 18:59 Intake Total 640 / 640 792 / 792 Output Total 560 / 560 Balance 80 / 80 792 / 792 Weight 77.1 kg 76.3 kg Intake: IV Heparin/D5W 25,000 U/250 mL 000 unit In 250 ml @ Per Protocol 9 mls/hr IV.CONT TITRATE PRN Rx#:[id number] Oral 640 / 640 720 / 720 Output: Urine 560 / 560 Other: # Voids 4 # Incontinent Voids 0 Date of Last Bowel Movement 04/14/18 Weight On Admission 77.1 kg Narrative: GENERAL: Awake alert and oriented 3 talkative and cooperative SKIN: Warm and dry. HEAD: Atraumatic. Normocephalic. EYES: Pupils equal and round. No scleral icterus. No injection or drainage. ENT: No nasal bleeding or discharge. Mucous membranes pink and moist. NECK: Trachea midline. No JVD. CARDIOVASCULAR: Regular rate and rhythm. S1-S2 no S3 or S4 RESPIRATORY: No accessory muscle use. Clear to auscultation. Breath sounds equal bilaterally. GASTROINTESTINAL: Abdomen soft, non-tender, nondistended. Hepatic and splenic margins not palpable. MUSCULOSKELETAL: Extremities without clubbing, cyanosis, or edema. No obvious deformities. NEUROLOGICAL: Awake and alert. No obvious cranial nerve deficits. Motor grossly within normal limits. Five out of 5 muscle strength in the arms and legs. Normal speech. PSYCHIATRIC: Appropriate mood and affect; insight and judgment normal. Results - Labs CBC & Chem 7: 04/15/18 04:47 04/15/18 04:47 Labs: Short CBC 04/15/18 Range/Units 04:47 WBC 8.4 (4.0-11.0) th/mm3 Hgb 13.9 (13.0-17.0) gm/dL Hct 39.5 (39.0-51.0) % Plt Count 267 (150-450) th/mm3 BMP 04/15/18 04:47 Sodium 140 Potassium 4.1 Chloride 105 Carbon Dioxide 27.1 BUN 10 Creatinine 0.93 Calcium 9.1 Urine 04/14/18 Range/Units 17:05 Urine Color Straw (Yellw/Straw) Urine Clarity Clear (Clear) Urine pH 7.0 (5.0-8.5) Ur Specific [place] 1.021 (1.002-1.035) Urine Protein Negative (Neg-Trace) mg/dL Urine Glucose (UA) Negative (Negative) mg/dL - Imaging Impressions Carotid Doppler Study 04/14/18 16:01 CONCLUSION: 1. Right Internal Carotid Artery: No significant plaque or narrowing. 2. Left Internal Carotid Artery: No significant plaque or narrowing. Chest X-Ray 04/14/18 16:01 CONCLUSION: No evidence of acute cardiopulmonary disease. Lower Extremity Ultrasound 04/14/18 16:01 CONCLUSION: Greater saphenous vein measurements as above. Venous Doppler Study 04/14/18 16:01 CONCLUSION: Negative study. No venous thrombosis of either lower extremity. Caprini VTE Risk Assessment Caprini VTE Risk Assessment: Moderate/High Risk (score >= 2) Caprini Risk Assessment Model: Point Value = 1 Point Value = 2 Point Value = 3 Point Value = 5 Age 41-60 Minor surgery BMI > 25 kg/m2 Swollen legs Varicose veins or History of unexplained or recurrent spontaneous Oral contraceptives or hormone replacement Sepsis (< 1 month) Serious lung disease, including pneumonia (< 1 month) Abnormal pulmonary function Acute myocardial infarction Congestive heart failure (< 1 month) History of inflammatory bowel disease Medical patient at bed rest Age 61-74 Arthroscopic surgery Major open surgery (> 45 min) Laparoscopic surgery (> 45 min) Malignancy Confined to bed (> 72 hours) Immobilizing plaster cast Central venous access Age >= 75 History of VTE Family history of VTE Factor V Leiden Prothrombin [id number] Lupus anticoagulant Anticardiolipin antibodies Elevated serum homocysteine Heparin-induced thrombocytopenia Other congenital or acquired thrombophilia Stroke (< 1 month) Elective arthroplasty Hip, pelvis, or leg fracture Acute spinal cord injury (< 1 month) Prophylaxis Regimen: Total Risk Factor Score Risk Level Prophylaxis Regimen 0-1 Low Early ambulation 2 Moderate Order ONE of the following: *Sequential Compression Device (SCD) *Heparin 5000 units SQ BID 3-4 Higher Order ONE of the following medications: *Heparin 5000 units SQ TID *Enoxaparin/Lovenox 40 mg SQ daily (WT < 150 kg, CrCl > 30 mL/min) *Enoxaparin/Lovenox 30 mg SQ daily (WT < 150 kg, CrCl > 10-29 mL/min) *Enoxaparin/Lovenox 30 mg SQ BID (WT < 150 kg, CrCl > 30 mL/min) AND/OR *Sequential Compression Device (SCD) 5 or more Highest Order ONE of the following medications: *Heparin 5000 units SQ TID (Preferred with Epidurals) *Enoxaparin/Lovenox 40 mg SQ daily (WT < 150 kg, CrCl > 30 mL/min) *Enoxaparin/Lovenox 30 mg SQ daily (WT < 150 kg, CrCl > 10-29 mL/min) *Enoxaparin/Lovenox 30 mg SQ BID (WT < 150 kg, CrCl > 30 mL/min) AND *Sequential Compression Device (SCD) Assessment and Plan - Plan Coronary artery disease multivessel scheduled for coronary artery bypass graft tomorrow with cardiovascular surgery -Continue on heparin Multivessel coronary artery disease with history of unstable angina Hypertension continue on home medications Hyperlipidemia continue on home medications Prediabetes heart healthy diet Hypothyroidism continue on Synthroid Continue DVT and GI prophylaxis Code Status: Full code Discussed Condition With: RN and patient and case management and cardiovascular surgery and cardiology Discharge Planning: Pending completion and recovery from cardiovascular surgery H&P: Quality - VTE Deep Vein Thrombosis/Pulmonary Embolism Present on Admission: No
--- NOTE | 2018-04-15 17:16 | P.PNCA ---
Subjective Interval history: No events overnight No chest pain Physical Exam Vital signs: Vital Signs 04/14/18 17:29 04/14/18 19:00 04/14/18 20:00 Temperature 98.2 F 97.9 F Pulse Rate 83 75 82 Respiratory Rate 20 18 Blood Pressure 116/74 145/79 H Pulse Oximetry 100 99 04/14/18 21:00 04/14/18 22:00 04/14/18 23:00 Temperature 98.5 F Pulse Rate 70 80 67 Respiratory Rate 18 Blood Pressure 129/79 Pulse Oximetry 95 04/15/18 00:00 04/15/18 01:00 04/15/18 02:00 Temperature Pulse Rate 68 66 60 Respiratory Rate Blood Pressure Pulse Oximetry 04/15/18 03:00 04/15/18 04:00 04/15/18 05:00 Temperature 98.7 F Pulse Rate 63 60 67 Respiratory Rate 16 Blood Pressure 105/64 Pulse Oximetry 97 04/15/18 06:00 04/15/18 07:00 04/15/18 08:00 Temperature 99.0 F Pulse Rate 65 75 70 Respiratory Rate 16 Blood Pressure 130/82 Pulse Oximetry 97 04/15/18 09:00 04/15/18 10:00 04/15/18 10:03 Temperature Pulse Rate 83 74 Respiratory Rate 16 Blood Pressure Pulse Oximetry 04/15/18 11:00 04/15/18 11:37 04/15/18 12:00 Temperature 99.4 F Pulse Rate 72 71 72 Respiratory Rate 16 Blood Pressure 126/74 Pulse Oximetry 04/15/18 13:00 04/15/18 14:00 04/15/18 15:00 Temperature Pulse Rate 74 68 71 Respiratory Rate Blood Pressure Pulse Oximetry 04/15/18 15:30 04/15/18 15:59 04/15/18 17:00 Temperature 99.4 F Pulse Rate 72 71 77 Respiratory Rate 16 Blood Pressure 166/88 H Pulse Oximetry 97 Intake & Output 04/14/18 04/15/18 04/15/18 18:59 06:59 18:59 Intake Total 640 / 640 792 / 792 Output Total 560 / 560 450 / 450 Balance 80 / 80 792 / 792 -450 / -450 Weight 77.1 kg 76.3 kg Intake: IV Heparin/D5W 25,000 U/250 mL 25, 72 / 72 000 unit In 250 ml @ Per Protocol 9 mls/hr IV.CONT TITRATE PRN Rx#:[id number] Oral 640 / 640 720 / 720 Output: Urine 560 / 560 450 / 450 Other: # Voids 4 5 # Incontinent Voids 0 Date of Last Bowel Movement 04/14/18 Weight On Admission 77.1 kg Narrative: GENERAL: NAD, AAOx3 SKIN: Warm and dry. HEAD: Atraumatic. Normocephalic. EYES: Pupils equal and round. No scleral icterus. No injection or drainage. ENT: No nasal bleeding or discharge. Mucous membranes pink and moist. NECK: Trachea midline. No JVD. CARDIOVASCULAR: Regular rate and rhythm. RESPIRATORY: No accessory muscle use. Clear to auscultation. Breath sounds equal bilaterally. GASTROINTESTINAL: Abdomen soft, non-tender, nondistended. Hepatic and splenic margins not palpable. MUSCULOSKELETAL: Extremities without clubbing, cyanosis, or edema. No obvious deformities. NEUROLOGICAL: Awake and alert. No obvious cranial nerve deficits. Motor grossly within normal limits. Five out of 5 muscle strength in the arms and legs. Normal speech. PSYCHIATRIC: Appropriate mood and affect; insight and judgment normal. Assessment and Plan - Assessment (1) Multi-vessel coronary artery stenosis Code(s): I25.10 - Atherosclerotic heart disease of [place] coronary artery without angina pectoris Status: Acute (2) CAD (coronary artery disease) Code(s): I25.10 - Atherosclerotic heart disease of [place] coronary artery without angina pectoris Status: Acute (3) CAD (coronary artery disease), [place] coronary artery Code(s): I25.10 - Atherosclerotic heart disease of [place] coronary artery without angina pectoris Status: Acute (4) Hyperlipidemia Code(s): E78.5 - Hyperlipidemia, unspecified Status: Acute - Plan 1) CAD/[place] MVCAD for CABG tomorrow Con't heparin drip 2) HLD 3) HTN
[2018-04-16 05:24] LABS: Baso # (Auto) 0.1 th/mm3 (0.0-0.2); Baso % (Auto) 0.7 % (0.0-2.0); Eos # (Auto) 0.3 th/mm3 (0.0-0.4); Eos % (Auto) 3.5 % (0.0-4.0); Hematocrit 39.8 % (39.0-51.0); Lymph # (Auto) 1.5 th/mm3 (1.0-4.8); Lymph % (Auto) 18.6 % (9.0-44.0); Mean Corpuscular HGB Conc 35.1 % (32.0-36.0); Mean Corpuscular Volume 88.2 fL (80.0-100.0); Mean Platelet Volume 8.2 fL (7.0-11.0); Mono # (Auto) 0.7 th/mm3 (0.0-0.9); Mono % (Auto) 8.4 % (0.0-8.0); Neut # (Auto) 5.4 th/mm3 (1.8-7.7); Neut % (Auto) 68.8 % (16.0-70.0); Platelet Count 263 th/mm3 (150-450); Red Blood Count 4.51 mil/mm3 (4.50-5.90); Red Cell Distribution Width 13.1 % (11.6-17.2); White Blood Count 7.8 th/mm3 (4.0-11.0)
[2018-04-16 05:37] LABS: INR 1.1 Ratio; Prothrombin Time 10.7 sec (9.8-11.6)
[2018-04-16 05:59] LABS: Alanine Aminotransferase 27 U/L (12-78); Albumin 3.9 g/dL (3.4-5.0); Anion Gap 9 meq/L (5-15); Aspartate Aminotransferase 12 U/L (15-37); Blood Urea Nitrogen 13 mg/dL (7-18); Calcium 8.9 mg/dL (8.5-10.1); Carbon Dioxide 26.1 meq/L (21.0-32.0); Chloride 105 meq/L (98-107); Glomerular Filtration Rate 81 mL/min (>89); Glucose,Random 114 mg/dL (74-106); Magnesium 2.1 mg/dL (1.5-2.5); Phosphorus 3.3 mg/dL (2.5-4.9); Sodium 140 meq/L (136-145)
[2018-04-16 06:11] LABS: Alkaline Phosphatase 59 U/L (45-117); Free T4 (Free Thyroxine) 0.91 ng/dL (0.76-1.46); Total Protein 6.9 g/dL (6.4-8.2)
[2018-04-16] MEDS ORDERED: Heparin - SQ 10,000 UNITS/ML Vial SQ ONE ×2 (07:33→12:00)
[2018-04-16] MEDS ORDERED: MethylPREDNISolone Sod Succinate Inj 125 MG/2 ML Vial ONE (07:33)
[2018-04-16] MEDS ORDERED: fentaNYL Citrate Inj 250 MCG/5 ML Ampul ONE ×2 (08:01→08:02)
[2018-04-16] MEDS ORDERED: Midazolam Inj 5 MG/ML 1 ML Vial ONE (08:02)
[2018-04-16] MEDS: amLODIPine 5 MG Tablet PO SCH (08:06)
[2018-04-16] MEDS ORDERED: Cardioplegic Irr Soln 2,000 ML IRRIGATION ONE (08:26)
[2018-04-16] MEDS ORDERED: Albumin Human 25% Inj 50 ML IV.SIG ONE (08:28)
[2018-04-16] MEDS ORDERED: Sodium Bicarbonate 8.4% Inj 50 MEQ/50 ML Syringe ONE (08:29)
[2018-04-16] MEDS ORDERED: Heparin 10,000 UNITS/10 ML Vial (for IV use) ONE (08:29)
[2018-04-16] MEDS ORDERED: ceFAZolin 2 GM Premix Inj 2 GM/50 ML PIGGYBACK IV.SIG ONE (09:03)
[2018-04-16] MEDS ORDERED: Metoprolol Inj 5 MG/5 ML Vial IV.PUSH PRN (11:36)
[2018-04-16] MEDS ORDERED: Post-op Orders (for Pharmacy) OTHER STA (11:36)
[2018-04-16] MEDS ORDERED: Clevidipine Inj 25 MG/50 ML VIAL IV.CONT PRN (11:36)
[2018-04-16] MEDS ORDERED: Magnesium Sulfate Inj 2 GM in Sodium Chlor 0.9% Inj 96 ML IV.SIG PRN ×4 (11:36)
[2018-04-16] MEDS ORDERED: Potassium Chlor 20 mEq Premix 20 MEQ/100 ML PIGGYBACK IV.SIG PRN ×3 (11:36)
[2018-04-16] MEDS ORDERED: Dexmedetomidine Inj 200 MCG/50 ML INFUS..BTL IV.CONT PRN (11:36)
[2018-04-16] MEDS ORDERED: RESP: Racemic Epinephrine 2.25% 0.5 ML Neb NEB PRN (11:36)
[2018-04-16] MEDS ORDERED: Dextrose 50% in Water 50 ML Vial IV.PUSH PRN (11:36)
[2018-04-16] MEDS ORDERED: hydrALAZINE HCl Inj 20 MG/ML Vial IV.PUSH PRN (11:36)
[2018-04-16] MEDS ORDERED: Sodium Bicarbonate 8.4% Inj 50 MEQ/50 ML Syringe IV.PUSH ONE (12:00)
[2018-04-16] MEDS ORDERED: Glycopyrrolate 0.2 MG/ML Vial IV.PUSH ONE (12:00)
[2018-04-16] MEDS ORDERED: Phenylephrine/NS 1000 MCG/10ML Syringe IV.PUSH ONE (12:00)
[2018-04-16] MEDS ORDERED: Tranexamic Acid Inj 1,000 MG/10 ML Ampul IV.PUSH ONE (12:00)
[2018-04-16] MEDS ORDERED: Lidocaine 2% 100 MG/5 ML Syringe IV.PUSH ONE (12:00)
[2018-04-16] MEDS ORDERED: Albumin Human 5% Inj 250 ML IV.SIG PRN (12:00)
--- NOTE | 2018-04-16 12:05 | P.OP ---
- Preoperative Diagnosis (1) Unstable angina (2) CAD (coronary artery disease), [place] coronary artery - Postoperative Diagnosis (1) Unstable angina Date of procedure: 04/16/18 Procedure: CABG x 3 REBOLLEDO to LAd - good SVG to RI - good SVG to OM1 - good EVH Anesthesia: KRISTOPHER Surgeon: Bhakti Pizarro MD Campus Coordinator: Natalio Arnold Pathology: none sent Operation and Findings: The risks, benefits, complications, treatment options, and expected outcomes were discussed with the patient. The possibilities of reaction to medication, pulmonary aspiration, perforation of viscus, bleeding, recurrent infection, the need for additional procedures, failure to diagnose a condition, and creating a complication requiring transfusion or operation were discussed with the patient. The patient concurred with the proposed plan, giving informed consent. The site of surgery properly noted/marked. The patient was taken to Operating Room, identified as Amrik Barnes and the procedure verified as CABG, EVH. A Time Out was held and the above information confirmed. Standard monitoring lines and Jules catheter were placed. General anesthesia was induced. The patient was prepped and draped in a sterile fashion. A median sternotomy was performed and electrocautery was used to obtain hemostasis. The left internal mammary artery was procured as a pedicle from the 7th rib to the 1st rib in the usual manner. Simultaneously left greater saphenous vein was procured from the left leg using a minimally invasive endoscopic technique. The vein was prepared for anastomosis and the leg wound was irrigated and closed in 2 layers. The pericardium was opened and a pericardial sling was created using interrupted 0 silk sutures. The patient was heparinized for cardiopulmonary bypass and the distal mammary pedicle was instrumented for anastomosis. The heart was instrumented for cardiopulmonary bypass in the usual manner. Antegrade blood cardioplegia was employed. The patient was placed on cardiopulmonary bypass. An aortic cross-clamp was applied and the heart was arrested using cold blood cardioplegia. Antegrade cardioplegia was administered after he each anastomosis. After adequate arrest, the distal right coronary circulation was investigated and the OM1 was opened with a [place] blade and found to be a 1.5 millimeter good target. Saphenous vein was approximated to the OM1 artery using a running 7 0 Prolene suture. The graft was measured for length and orientation and the proximal anastomosis was constructed to the ascending aorta using a running 5 0 Prolene suture after creating an aortotomy with a 5 millimeter punch. The [place] artery was then opened with a [place] blade and found to be a 1.5 millimeter good target. Saphenous vein was approximated to the RI artery using a running 7 0 Prolene suture. The graft was measured for length and orientation and was suspended from the pericardium. The distal LAD was opened with a [place] blade and found to be a 1.5 millimeter good target. The left internal mammary artery was approximated to the LAD using a running 7 0 Prolene suture. The pedicle was attached to the epicardium using interrupted 5 0 silk suture. The patient was systemically rewarmed and received a hotshot dose of warm blood cardioplegia. The aorta was vented and the proximal anastomosis to the RI graft was accomplished using a running 5 0 Prolene suture after creating an aortotomy was a 5 millimeter punch. The cross-clamp was removed and all proximal and distal anastomoses were examined for hemostasis. The patient was weaned from cardiopulmonary bypass. Protamine was given. There was no adverse reaction. Decannulation was carried out without incident. Wound was checked for hemostasis which was obtained using electrocautery. A 36 [place] mediastinal and 32 [place] left pleural chest tubes were placed and secured to the skin with 0 silk suture. The sternum was closed with stainless steel wire. The fascia was closed with 1. PDS. The subcutaneous tissue was closed using a running 2-0 Vicryl suture. The skin was closed with 4-0 Monocryl. Sterile dressings were placed. At the end of the operation, all sponge, instruments, and needle counts were correct. The patient was transferred to the CVICU in stable condition. Findings: good distal targets XC: 43 min CPB: 54 min Drains: mediastinal x 1 pleural x 1 Complications: none Disposition: to CVICU in stable condition
[2018-04-16] MEDS: Sod Chloride 0.9% Inj 1,000 ML IV.SIG SCH (12:35)
[2018-04-16] MEDS: Insulin Regular (For Infusion) 100 UNIT in Sodium Chlor 0.9% Inj 99 ML IV.CONT PRN (12:37)
[2018-04-16] MEDS ORDERED: Calcium Chloride Inj 1 GM/10 ML Syringe IV.PUSH PRN (13:00)
[2018-04-16] MEDS ORDERED: Calcium Chloride Inj 1 GM in Sodium Chlor 0.9% Inj 100 ML IV.SIG PRN (13:00)
--- NOTE | 2018-04-16 13:48 | XR ---
EXAM DATE: 04/16/2018 1:44 PM EDT AGE/SEX: 67 years / Male INDICATIONS: Cardiac disease. CLINICAL DATA: This is the patient's subsequent encounter. Patient reports that signs and symptoms h ave been present for 3 days and indicates a pain score of Nonresponsive. MEDICAL/SURGICAL HISTORY: Non-responsive. Non-responsive. COMPARISON: [facility] [place], CHEST 2V PA&LAT, 04/14/2018. . FINDINGS: The patient is status post sternotomy. The patient is intubated with the tip of ET tube 2.5 cm from t he keron. There is an NG tube in place with its tip seen over the EG junction region. This could be advanced. There is a mediastinal drain and left-sided chest tube in place. A pneumothorax is not seen . There is a left subclavian line in place with tip overlying the SVC. The heart size is normal. Ther e are some mild patchy density seen at the left base. CONCLUSION: Status post sternotomy. The NG tube tip is at the EG junction. This could be advanced. Mild patchy density at the left base representing some atelectasis or consolidation. Electronically signed by: Natalio Charles MD 04/16/2018 1:47 PM EDT
--- NOTE | 2018-04-16 14:00 | P.PNCA ---
- Note Subjective/Hospital Course: 67-year-old male who was complaining of some chest pain, burning dull pain a couple weeks ago and it reoccurred. He underwent an echocardiogram that showed ejection fraction 55%, some subtle inferior posterior wall motion abnormality. He was then electively brought in for a heart catheterization which showed proximal LAD of 70%, the circumflex was 99%, the OM 99%, the ramus 70%. We were consulted for multivessel coronary disease. PAST MEDICAL HISTORY: Includes depression, hyperlipidemia, hypertension, hypothyroidism, right bundle branch block. He does have some migraine headaches. pt doing well , no chest pain . for surgery in am 04/16 surgery : CABG x 3, REBOLLEDO to LAd - good, SVG to RI - good, SVG to OM1 - good, L EVH Objective: Vital Signs - 24 hr 04/15/18 14:00 04/15/18 15:00 04/15/18 15:30 Temperature 99.4 F Pulse Rate 68 71 72 Respiratory Rate 16 Blood Pressure 166/88 H Pulse Oximetry 97 04/15/18 15:59 04/15/18 17:00 04/15/18 18:00 Temperature Pulse Rate 71 77 76 Respiratory Rate Blood Pressure Pulse Oximetry 04/15/18 19:00 04/15/18 20:00 04/15/18 21:00 Temperature Pulse Rate 76 98 H 82 Respiratory Rate Blood Pressure Pulse Oximetry 04/15/18 21:50 04/15/18 22:00 04/15/18 23:00 Temperature 98.3 F Pulse Rate 82 89 76 Respiratory Rate 17 Blood Pressure 141/73 H Pulse Oximetry 96 04/16/18 00:00 04/16/18 00:15 04/16/18 01:00 Temperature 98.4 F Pulse Rate 89 85 89 Respiratory Rate 17 Blood Pressure 134/73 Pulse Oximetry 96 04/16/18 02:00 04/16/18 03:00 04/16/18 04:00 Temperature Pulse Rate 80 87 70 Respiratory Rate Blood Pressure Pulse Oximetry 04/16/18 05:00 04/16/18 05:38 04/16/18 06:00 Temperature 98.3 F Pulse Rate 81 82 95 H Respiratory Rate 19 Blood Pressure 139/79 Pulse Oximetry 96 04/16/18 07:00 04/16/18 08:00 04/16/18 12:05 Temperature 98.3 F Pulse Rate 85 84 Respiratory Rate 18 12 Blood Pressure 144/81 H Pulse Oximetry 96 04/16/18 12:34 04/16/18 12:58 04/16/18 13:25 Temperature 97.1 F L Pulse Rate 80 Respiratory Rate 12 12 Blood Pressure 134/57 L Pulse Oximetry 95 04/16/18 13:40 Temperature Pulse Rate Respiratory Rate Blood Pressure Pulse Oximetry 95 Labs: Laboratory Results - last 12 hr 04/15/18 04/16/18 04/16/18 10:10 05:09 05:09 WBC 7.8 RBC 4.51 Hgb 14.0 Hct 39.8 MCV 88.2 MCH 31.0 MCHC 35.1 RDW 13.1 Plt Count 263 MPV 8.2 Neut % (Auto) 68.8 Lymph % (Auto) 18.6 Thayer % (Auto) 8.4 H Eos % (Auto) 3.5 Baso % (Auto) 0.7 Neut # (Auto) 5.4 Lymph # (Auto) 1.5 Thayer # (Auto) 0.7 Eos # (Auto) 0.3 Baso # (Auto) 0.1 WBC Differential . Differential Comment Auto diff final PT 10.7 INR 1.1 APTT 35.0 H Sodium Potassium Chloride Carbon Dioxide Anion Gap BUN Creatinine Estimated GFR POC Glucose Random Glucose Calcium Phosphorus Magnesium Total Bilirubin AST ALT Alkaline Phosphatase Total Protein Albumin TSH Free T4 Blood Type A Negative Antibody Screen Negative MTS Gel Crossmatch See Detail 04/16/18 04/16/18 04/16/18 05:09 08:04 13:03 WBC RBC Hgb Hct MCV MCH MCHC RDW Plt Count MPV Neut % (Auto) Lymph % (Auto) Thayer % (Auto) Eos % (Auto) Baso % (Auto) Neut # (Auto) Lymph # (Auto) Thayer # (Auto) Eos # (Auto) Baso # (Auto) WBC Differential Differential Comment PT INR APTT Sodium 140 Potassium 4.0 Chloride 105 Carbon Dioxide 26.1 Anion Gap 9 BUN 13 Creatinine 0.93 Estimated GFR 81 L POC Glucose 133 H 83 Random Glucose 114 H Calcium 8.9 Phosphorus 3.3 Magnesium 2.1 Total Bilirubin 0.5 AST 12 L ALT 27 Alkaline Phosphatase 59 Total Protein 6.9 Albumin 3.9 TSH 5.770 H Free T4 0.91 Blood Type Antibody Screen MTS Gel Crossmatch Result Diagrams: 04/16/18 05:09 04/16/18 05:09 - Plan (1) CAD (coronary artery disease), [place] coronary artery Plan: ASA, statin , BB for surgery in am
--- NOTE | 2018-04-16 14:08 | P.DCO ---
- Diagnosis (2) CAD (coronary artery disease) (3) Hyperlipidemia - Home Health Nursing Order: Medical education, Signs/symptoms of disease process, Wound care and dressing changes, Nursing assessment with vital signs Instructions: Heart and Vascular Surgery patients *Special attention to sternal dressing Mandatory frequency Assess and evaluation, 4 days in a row The next week 3X week 2 times a week for 4 weeks 1 time a week for 5 weeks Schedule Heart and Vascular patients for full 60 day certification period Initial visit Review Open Heart Surgery Discharge Instructions (Sternal precautions, Activity, Elastic hose, Incision care, Driving, Incentive spirometry, Smoking, [place], Work and other) Need Betadine to paint incision Medication reconciliation Importance of follow up care/ check on appointments Make calendar record temperature daily When to call [facility] nurse, review instructions, phone list Incentive Spirometry, demonstration Visit 1- Begin discharge instruction for patient family and/ or caregiver using teach back method- Signs and symptoms of infection Disease characteristics Medicines and side effects Foods and nutrition/ appetite Infection control/ hand washing/ hygiene Visit 2- Continue teaching Discharge instructions- include additional information on smoking cessation , sternal dressing (sternal vac) Visit 3- Continue teaching- Cough and deep breathing, incision monitoring. Choose my plate Visit 4- Continue teaching- Discuss limitations Discuss how they are feeling Discuss progress toward goals Remaining visits- continue teaching and monitoring For any questions please call : Friday 8am-5pm Heart & Vascular Surgery Office ( Dr. Lloyd & Dr. Pizarro), After Hours / Nights (5pm -8am) Weekends and Holidays Please call [facility] Cardiac Intermediate Care Unit (CIC) Charge Nurse PREVENA Single Use Negative Wound Therapy System Caregiver Instruction Sheet 1. A Prevena dressing system was applied to the chest incision during surgery , to promote wound healing. It works via a suction device (negative pressure wound therapy) to remove low to moderate levels of exudate (drainage) and infectious materials. We recommend that the device stay in place for up to seven days, from day of surgery. 2. Day of Surgery__/09/22 Day of Removal ____/ 3. The dressing should only be removed by a health career development manager. Please arrange removal of device to coincide with Home Health visit and or with Nursing staff at Rehab 4. If skin reddening or irritation of skin occurs, or excessive drainage, please notify the Cardiovascular Surgeons office at [phone]. 5. Light showering is permissible; however the pump should be disconnected and placed in safe location, where it will not get wet. The dressing should not be exposed to direct spray or submerged in water. No bath tub / shower only. Ensure the end of the tubing attached to the dressing is facing down so that water does not enter the top of the tube. 6. To remove Prevena dressing: press purple button to turn off device / remove the suction. Then disconnect the tubing from the pump. The fixation strips should be stretched away from the skin and the dressing lifted at one corner and peeled back until it has been fully removed. 7. After removal, it is ok to shower daily using liquid dial soap and clean wash cloth, rinse and pat dry, and leave incision open to air dry. For any concerns regarding Prevena dressing, and or wounds, please contact Kelly Vargas, patient navigator at [phone] or notify the Cardiovascular Surgeons office at [phone]. Incentive spirometry Q1 hr x 10, while awake, also use acapella device hourly whole awake Sternal Breast Bone Precautions: NO pushing or pulling, ( pt must use sternal pillow to support chest with all activities and with coughing ( takes up to 3 months breast bone to heal ) Daily incision care: ok to shower daily, no tub bath. Wash all incisions with liquid dial soap, clean wash cloth to each site, rinse and pat dry. Observe for any signs of infection, such as drainage which is dark yellow, richard, green or foul smelling. Immediately report to the surgeon any drainage from the chest incision, or legs, and for any abnormal drainage from the chest tube sites. Notify surgeon if any temp >101.5 degrees F. When specialty dressing removed/ or if you do not have one, continue to shower daily as above, then rinse and pat incision dry and paint with betadine daily x 5 days. Allow steri strips to fall off if you have any. Avoid lotions, creams, salves, oils, etc. for the first month Please see attached forms for additional instructions regarding post Open Heart specialty wound vacuum dressings. TERESO or Prevena , Dressing to be removed by Nursing staff on __04/23/[address] Pizarro patients , please obtain CBC, BMP, PA & Lat CXR in 2 weeks, results to Dr. Pizarro ( prescription will be given) ( ) (Tele: [phone]) , F/U appointment: as per DC instructions: PCP in 2 weeks, CV surgeon 2 weeks, Truck [employer]er [employer] 3-4 weeks For any questions regarding incisions/ dressing / meds / post op care or above Symptoms, Friday 8am-5pm Heart & Vascular Surgery Office ( Dr. Lloyd & Dr. Pizarro), After Hours / Nights (5pm -8am) Weekends and Holidays Please call [facility] Cardiac Intermediate Care Unit (CIC) Charge Nurse - Certification I have seen patient Amrik Barnes on 04/16/18. My clinical findings support the need for the requested home health care services because: Deconditioned with increased weakness I certify that my clinical findings support that this patient is homebound because: Post-op weakness (2) CAD (coronary artery disease) Qualifiers: Coronary Disease-Associated Artery/Lesion type: havas[place] artery (3) Hyperlipidemia Qualifiers: Hyperlipidemia type: pure hypercholesterolemia Qualified Code(s): E78.00 - Pure hypercholesterolemia, unspecified; E78.0 - Pure hypercholesterolemia
[2018-04-16] MEDS: fentaNYL Citrate Inj 100 MCG/2 ML Ampul IV.PUSH PRN ×3 (14:17→20:42)
--- NOTE | 2018-04-16 14:21 | P.PNIM ---
Subjective Interval history: Chief Complaint: POSITIVE UNSTABLE ANGINA AND CHEST PAIN- NEEDING A CARDIAC CATH History of Present Illness: Patient is a 67-year-old gentleman who came into the hospital as a direct admission for cardiac catheterization has history of multivessel coronary artery disease was seen by Dr. DAVIS and sent in for cardiac catheterization. Had the cardiac catheterization yesterday by Dr. Rivera. Was found to have multivessel disease patient was therefore admitted placed on a heparin drip and been evaluated by cardiovascular surgery patient is scheduled to go for coronary artery bypass graft tomorrow with cardiovascular surgery 712 SP CABG X3 TODAY SEEN POST OP DW RN AND PT AND CM "I FEEL STRANGE" AM LABS Physical Exam Vital signs: Vital Signs 04/15/18 15:00 04/15/18 15:30 04/15/18 15:59 Temperature 99.4 F Pulse Rate 71 72 71 Respiratory Rate 16 Blood Pressure 166/88 H Pulse Oximetry 97 04/15/18 17:00 04/15/18 18:00 04/15/18 19:00 Temperature Pulse Rate 77 76 76 Respiratory Rate Blood Pressure Pulse Oximetry 04/15/18 20:00 04/15/18 21:00 04/15/18 21:50 Temperature 98.3 F Pulse Rate 98 H 82 82 Respiratory Rate 17 Blood Pressure 141/73 H Pulse Oximetry 96 04/15/18 22:00 04/15/18 23:00 04/16/18 00:00 Temperature Pulse Rate 89 76 89 Respiratory Rate Blood Pressure Pulse Oximetry 04/16/18 00:15 04/16/18 01:00 04/16/18 02:00 Temperature 98.4 F Pulse Rate 85 89 80 Respiratory Rate 17 Blood Pressure 134/73 Pulse Oximetry 96 04/16/18 03:00 04/16/18 04:00 04/16/18 05:00 Temperature Pulse Rate 87 70 81 Respiratory Rate Blood Pressure Pulse Oximetry 04/16/18 05:38 04/16/18 06:00 04/16/18 07:00 Temperature 98.3 F Pulse Rate 82 95 H 85 Respiratory Rate 19 Blood Pressure 139/79 Pulse Oximetry 96 04/16/18 08:00 04/16/18 12:05 04/16/18 12:34 Temperature 98.3 F Pulse Rate 84 Respiratory Rate 18 12 12 Blood Pressure 144/81 H Pulse Oximetry 96 04/16/18 12:58 04/16/18 13:25 04/16/18 13:40 Temperature 97.1 F L Pulse Rate 80 Respiratory Rate 12 Blood Pressure 134/57 L Pulse Oximetry 95 95 Intake & Output 04/15/18 04/16/18 04/16/18 18:59 06:59 18:59 Intake Total 480 / 480 3500.6 / 3500.6 Output Total 450 / 450 1700 / 1700 Balance -450 / -450 480 / 480 1800.6 / 1800.6 Weight 77 kg Intake: IV 120 / 120 0.6 / 0.6 Cleviprex Inj 25 mg In 50 ml @ 0.6 / 0.6 1 MG/HR 2 mls/hr IV.CONT TITRATE PRN Rx#:[id number] Heparin/D5W 25,000 U/250 mL 25, 120 / 120 000 unit In 250 ml @ Per Protocol 9 mls/hr IV.CONT TITRATE PRN Rx#:[id number] Oral 360 / 360 Anesthesia Amount 3000 / 3000 Cell Saver Amount 500 / 500 Output: Urine 450 / 450 Estimated Blood Loss 1000 / 1000 Urine Amount (Catheter) 700 / 700 Indwelling Urethral Catheter 700 / 700 Other: # Voids 5 3 Date of Last Bowel Movement 04/14/18 04/14/18 04/14/18 Narrative: GENERAL: NAD, AAOx3 SKIN: Warm and dry. HEAD: Atraumatic. Normocephalic. EYES: Pupils equal and round. No scleral icterus. No injection or drainage. ENT: No nasal bleeding or discharge. Mucous membranes pink and moist. NECK: Trachea midline. No JVD. CARDIOVASCULAR: Regular rate and rhythm. CHEST IS DRESSED S1, S2 NO S3 OR S4 SLIGHT RUB RESPIRATORY: No accessory muscle use. Clear to auscultation. Breath sounds equal bilaterally. GASTROINTESTINAL: Abdomen soft, non-tender, nondistended. Hepatic and splenic margins not palpable. MUSCULOSKELETAL: Extremities without clubbing, cyanosis, or edema. No obvious deformities. LEFT LEG IS WRAPPED NEUROLOGICAL: Awake and alert. No obvious cranial nerve deficits. Motor grossly within normal limits. Five out of 5 muscle strength in the arms and legs. Normal speech. PSYCHIATRIC: Appropriate mood and affect; insight and judgment normal. - Urinary Catheter Management Indwelling Urethral Catheter Cath placed during this visit: yes Reason for continuing: Hourly intake/output Insertion date: 04/16/18 Insertion time: 08:40 Results - Labs CBC & Chem 7: 04/16/18 05:09 04/16/18 05:09 Laboratory Results - last 24 hr 04/15/18 04/15/18 04/16/18 10:10 16:15 05:09 WBC RBC Hgb Hct MCV MCH MCHC RDW Plt Count MPV Neut % (Auto) Lymph % (Auto) [place] % (Auto) Eos % (Auto) Baso % (Auto) Neut # (Auto) Lymph # (Auto) [place] # (Auto) Eos # (Auto) Baso # (Auto) WBC Differential Differential Comment PT 10.7 INR 1.1 APTT 39.9 H 35.0 H Sodium Potassium Chloride Carbon Dioxide Anion Gap BUN Creatinine Estimated GFR POC Glucose Random Glucose Calcium Phosphorus Magnesium Total Bilirubin AST ALT Alkaline Phosphatase Total Protein Albumin TSH Free T4 Blood Type A Negative Antibody Screen Negative MTS Gel Crossmatch See Detail 04/16/18 04/16/18 04/16/18 05:09 05:09 08:04 WBC 7.8 RBC 4.51 Hgb 14.0 Hct 39.8 MCV 88.2 MCH 31.0 MCHC 35.1 RDW 13.1 Plt Count 263 MPV 8.2 Neut % (Auto) 68.8 Lymph % (Auto) 18.6 [place] % (Auto) 8.4 H Eos % (Auto) 3.5 Baso % (Auto) 0.7 Neut # (Auto) 5.4 Lymph # (Auto) 1.5 [place] # (Auto) 0.7 Eos # (Auto) 0.3 Baso # (Auto) 0.1 WBC Differential . Differential Comment Auto diff final PT INR APTT Sodium 140 Potassium 4.0 Chloride 105 Carbon Dioxide 26.1 Anion Gap 9 BUN 13 Creatinine 0.93 Estimated GFR 81 L POC Glucose 133 H Random Glucose 114 H Calcium 8.9 Phosphorus 3.3 Magnesium 2.1 Total Bilirubin 0.5 AST 12 L ALT 27 Alkaline Phosphatase 59 Total Protein 6.9 Albumin 3.9 TSH 5.770 H Free T4 0.91 Blood Type Antibody Screen MTS Gel Crossmatch 04/16/18 13:03 WBC RBC Hgb Hct MCV MCH MCHC RDW Plt Count MPV Neut % (Auto) Lymph % (Auto) [place] % (Auto) Eos % (Auto) Baso % (Auto) Neut # (Auto) Lymph # (Auto) [place] # (Auto) Eos # (Auto) Baso # (Auto) WBC Differential Differential Comment PT INR APTT Sodium Potassium Chloride Carbon Dioxide Anion Gap BUN Creatinine Estimated GFR POC Glucose 83 Random Glucose Calcium Phosphorus Magnesium Total Bilirubin AST ALT Alkaline Phosphatase Total Protein Albumin TSH Free T4 Blood Type Antibody Screen MTS Gel Crossmatch - Imaging Impressions Chest X-Ray 04/16/18 11:36 CONCLUSION: Status post sternotomy. The NG tube tip is at the EG junction. This could be advanced. Mild patchy density at the left base representing some atelectasis or consolidation. - Procedures (1) Unstable angina Date of procedure: 04/16/18 Procedure: CABG x 3 REBOLLEDO to LAd - good SVG to RI - good SVG to OM1 - good EVH Anesthesia: GETA Surgeon: Bhakti Pizarro MD 04/14/2018 PROCEDURE: Left heart catheterization, coronary angiogram, moderate sedation 40 minutes, IFR LAD. PREPROCEDURE DIAGNOSIS: Unstable angina on multiple antianginals, suspected significant coronary artery disease. POSTPROCEDURE DIAGNOSIS: Multivessel coronary artery disease, unstable angina. MEDICATIONS: 1. Versed 0.5 mg. 2. Fentanyl 25 mcg. 3. Verapamil 2.5 mg. 4. Nitro 200 mcg. 5. Heparin 6600 units. CONTRAST USED: 100 mL FLUOROSCOPY: 4.7 minutes. MODERATE SEDATION: 40 minutes. FRAILTY SCORE: 3. ESTIMATED BLOOD LOSS: 10 mL PROCEDURAL SUMMARY: Amrik Barnes is a pleasant 67-year-old male who sees my partner, Dr. Davis, in the office and was recommended cardiac catheterization due to typical angina on multiple antianginals. Risks, benefits and alternatives were explained to him and he consented as such. He was brought to the lab and prepped in the usual sterile fashion. The right radial artery was accessed using a modified Seldinger technique and placement of a 5/6 Sloven[place] slender sheath. This was easily aspirated and flushed. A JR4 was advanced over a J-wire to the ascending aorta and across the aortic valve for measurement of left ventricular pressure. This was pulled back across the aortic valve showing no significant gradient of aortic stenosis. A JR4 was used for selective angiography of the right coronary artery system. This is exchanged out for a JL3.5, which was used for selective angiography of the left coronary artery system. There was significant disease of the ramus and obtuse marginal and at least moderate disease of the LAD and I felt that this should be further investigated as if this is significant, he should be considered for coronary artery bypass grafting instead of PCI involving the ramus and obtuse marginal. The patient was given heparin as an anticoagulant. An EBU 3.5 guide was engaged in the left main. A [employer]water wire was advanced into the distal LAD. IFR was measured at 0.87, showing significant stenosis. This was pulled back to the left main and IFR returned to 1.0. The wire was removed. Final angiogram shows no disruption of the coronary anatomy. FINDINGS: LEFT MAIN: Large vessel with adequate reflux. It trifurcates into an LAD, ramus and circumflex. LAD: Normal sized vessel with 70% stenosis in the proximal portion. This is a long tubular lesion and in the mid portion no significant disease. It gives off 1 small diagonal with no significant disease. RAMUS: Normal-sized vessel with 50% disease in the proximal portion, which then bifurcates into an upper and lower branch. Upper branch is larger and has a 70% lesion. Lateral branch is overall smaller with no significant disease. LEFT CIRCUMFLEX: Normal-sized vessel with mild luminal irregularity throughout the proximal portion. The mid portion is subtotally occluded with MARTY I flow. Distally, there is [id number] collaterals which supplies 2 obtuse marginals. RCA: Normal-sized vessel with mild tortuosity. The mid to distal portion has a 50% lesion. Distally, it supplies the PDA as well as 2 posterolateral branches with the first one having a 90% lesion, but is overall a small vessel with little myocardium. It also does supply collaterals to a distal obtuse marginal. LVEDP 13. IMPRESSION: 1. Unstable angina. 2. Multivessel coronary artery disease. 3. Hypertension. 4. Hyperlipidemia. RECOMMENDATIONS: 1. Mr. Barnes presented in the office with unstable angina and, during his cardiac catheterization, was found to have multivessel disease. 2. Due to the significance of the disease in his left circumflex, which has MARTY I flow, I believe that he should be admitted to the hospital and placed on a heparin drip and CT surgery should be consulted. 3. Heparin drip will be started 1 hour after TR band removed. 4. Case has been discussed with CT surgery. 5. He recently had an echocardiogram in the office and we will obtain the results from this. 6. Further recommendations will be made based on the hospital course. Thank you for allowing me to see Amrik Barnes. If there are any questions, please do not hesitate to call. Nitesh Rivera, DO Assessment and Plan - Plan Coronary artery disease multivessel scheduled for coronary artery bypass HAD PROCEDURE 7-12 CABG X3 Multivessel coronary artery disease with history of unstable angina--SP PROCEDURE 7-12 CABG X3 Hypertension continue on home medications Hyperlipidemia continue on home medications Prediabetes heart healthy diet Hypothyroidism continue on Synthroid Continue DVT and GI prophylaxis Code Status: FULL CODE Discussed Condition With: MOOKIE RN AND PT AND CM AND CARDIOLOGY Discharge Planning: Pending completion and recovery from cardiovascular surgery
[2018-04-16 16:50] LABS: Hemoglobin A1c 5.5 % (4.3-6.0)
[2018-04-16] MEDS: Amiodarone 200 MG Tablet PO SCH ×2 (18:08→22:11)
--- NOTE | 2018-04-16 20:38 | P.PNCA ---
Subjective Interval history: Patient was seen earlier this afternoon post-CABG At the time, intubated, no vasopressors Physical Exam Vital signs: Vital Signs 04/15/18 21:00 04/15/18 21:50 04/15/18 22:00 Temperature 98.3 F Pulse Rate 82 82 89 Respiratory Rate 17 Blood Pressure 141/73 H Pulse Oximetry 96 04/15/18 23:00 04/16/18 00:00 04/16/18 00:15 Temperature 98.4 F Pulse Rate 76 89 85 Respiratory Rate 17 Blood Pressure 134/73 Pulse Oximetry 96 04/16/18 01:00 04/16/18 02:00 04/16/18 03:00 Temperature Pulse Rate 89 80 87 Respiratory Rate Blood Pressure Pulse Oximetry 04/16/18 04:00 04/16/18 05:00 04/16/18 05:38 Temperature 98.3 F Pulse Rate 70 81 82 Respiratory Rate 19 Blood Pressure 139/79 Pulse Oximetry 96 04/16/18 06:00 04/16/18 07:00 04/16/18 08:00 Temperature 98.3 F Pulse Rate 95 H 85 84 Respiratory Rate 18 Blood Pressure 144/81 H Pulse Oximetry 96 04/16/18 12:05 04/16/18 12:34 04/16/18 12:58 Temperature 97.1 F L Pulse Rate 80 Respiratory Rate 12 12 12 Blood Pressure 134/57 L Pulse Oximetry 04/16/18 13:25 04/16/18 13:40 04/16/18 14:32 Temperature Pulse Rate Respiratory Rate Blood Pressure Pulse Oximetry 95 95 96 04/16/18 14:50 04/16/18 15:00 04/16/18 17:22 Temperature 98.5 F 98.7 F Pulse Rate 83 Respiratory Rate 16 16 Blood Pressure 125/65 Pulse Oximetry 95 04/16/18 18:47 Temperature Pulse Rate Respiratory Rate 16 Blood Pressure Pulse Oximetry Intake & Output 04/16/18 04/16/18 04/17/18 06:59 18:59 06:59 Intake Total 480 / 480 4945.5 / 4945.5 Output Total 3150 / 3150 Balance 480 / 480 1795.5 / 1795.5 Weight 77 kg Intake: IV 120 / 120 245.5 / 245.5 Cleviprex Inj 25 mg In 50 ml @ 0.6 / 0.6 1 MG/HR 2 mls/hr IV.CONT TITRATE PRN Rx#:[id number] Precedex Inj 200 mcg In 50 ml @ 15.8 / 15.8 0.2 MCG/KG/HR 3.85 mls/hr IV. CONT TITRATE PRN Rx#:[id number] Heparin/D5W 25,000 U/250 mL 25, 120 / 120 000 unit In 250 ml @ Per Protocol 9 mls/hr IV.CONT TITRATE PRN Rx#:[id number] NovoLIN R (IV Infusion) 100 29.1 / 29.1 UNIT In NS Inj 99 ML @ 3 UNITS/ HR 3 mls/hr IV.CONT TITRATE PRN Rx#:[id number] Ofirmev Inj 1,000 mg In 100 ml 200 / 200 @ 400 mls/hr IV.SIG Q6H CLEMENT Rx# :[id number] Oral 360 / 360 1200 / 1200 Anesthesia Amount 3000 / 3000 Cell Saver Amount 500 / 500 Output: Estimated Blood Loss 1000 / 1000 Urine Amount (Catheter) 1850 / 1850 Indwelling Urethral Catheter 1850 / 1850 Chest Tube Drainage 300 / 300 #2 Left Pleural Y Connected 300 / 300 Other: # Voids 3 Date of Last Bowel Movement 04/14/18 04/14/18 Narrative: GENERAL: Intubated SKIN: Warm and dry. HEAD: Atraumatic. Normocephalic. EYES: Pupils equal and round. No scleral icterus. No injection or drainage. ENT: No nasal bleeding or discharge. Mucous membranes pink and moist. NECK: Trachea midline. No JVD. CARDIOVASCULAR: Regular rate and rhythm. Sternotomy clean/dry/intact RESPIRATORY: No accessory muscle use. Clear to auscultation. Breath sounds equal bilaterally. GASTROINTESTINAL: Abdomen soft, non-tender, nondistended. Hepatic and splenic margins not palpable. MUSCULOSKELETAL: Extremities without clubbing, cyanosis, or edema. No obvious deformities. NEUROLOGICAL: Intubated and sedated - Urinary Catheter Management Indwelling Urethral Catheter Cath placed during this visit: yes Reason for continuing: Hourly intake/output Insertion date: 04/16/18 Insertion time: 08:40 Assessment and Plan - Assessment (1) Multi-vessel coronary artery stenosis Code(s): I25.10 - Atherosclerotic heart disease of [place] coronary artery without angina pectoris Status: Acute (2) CAD (coronary artery disease) Code(s): I25.10 - Atherosclerotic heart disease of [place] coronary artery without angina pectoris Status: Acute (3) CAD (coronary artery disease), [place] coronary artery Code(s): I25.10 - Atherosclerotic heart disease of [place] coronary artery without angina pectoris Status: Acute (4) Hyperlipidemia Code(s): E78.5 - Hyperlipidemia, unspecified Status: Acute - Plan 1) CAD/[place]/MVCAD s/p CABG x3 POD #0 REBOLLEDO to LAD SVG to Ramus SVG to OM 2) ASA/Amio/statin/BB (2) CAD (coronary artery disease) Qualifiers: Coronary Disease-Associated Artery/Lesion type: [place] artery (4) Hyperlipidemia Qualifiers: Hyperlipidemia type: pure hypercholesterolemia Qualified Code(s): E78.00 - Pure hypercholesterolemia, unspecified; E78.0 - Pure hypercholesterolemia
[2018-04-16] MEDS: Amitriptyline 25 MG Tablet PO SCH (20:39)
[2018-04-17] MEDS: fentaNYL Citrate Inj 100 MCG/2 ML Ampul IV.PUSH PRN ×2 (00:26→05:06)
[2018-04-17 04:43] LABS: Baso # (Auto) 0.1 th/mm3 (0.0-0.2); Baso % (Auto) 0.3 % (0.0-2.0); Hematocrit 34.9 % (39.0-51.0); Lymph # (Auto) 0.8 th/mm3 (1.0-4.8); Lymph % (Auto) 3.9 % (9.0-44.0); Mean Corpuscular HGB Conc 34.3 % (32.0-36.0); Mean Corpuscular Hemoglobin 30.1 pg (27.0-34.0); Mean Corpuscular Volume 87.7 fL (80.0-100.0); Mean Platelet Volume 8.5 fL (7.0-11.0); Mono # (Auto) 1.4 th/mm3 (0.0-0.9); Neut # (Auto) 17.5 th/mm3 (1.8-7.7); Neut % (Auto) 88.8 % (16.0-70.0); Platelet Count 250 th/mm3 (150-450); Red Blood Count 3.98 mil/mm3 (4.50-5.90); Red Cell Distribution Width 13.6 % (11.6-17.2); White Blood Count 19.7 th/mm3 (4.0-11.0)
[2018-04-17] MEDS: Ketorolac Inj 30 MG/ML (IVP) Vial IV.PUSH PRN ×2 (05:07→11:16)
[2018-04-17] MEDS: Amiodarone 200 MG Tablet PO SCH ×3 (05:08→21:05)
--- NOTE | 2018-04-17 05:09 | XR ---
EXAM DATE: 04/17/2018 4:24 AM EDT AGE/SEX: 67 years / Male INDICATIONS: Post CABG. CLINICAL DATA: This is the patient's subsequent encounter. Patient reports that signs and symptoms h ave been present for 4 - 6 days and indicates a pain score of Nonresponsive. MEDICAL/SURGICAL HISTORY: Non-responsive. Non-responsive. COMPARISON: [facility] [place], CHEST 1V SINGLE AP, 04/16/2018. . FINDINGS: A single AP view of the chest demonstrates recent CABG. Minimal bibasilar subsegmental atelectasis. M ediastinal left-sided chest tubes are seen. No pneumothorax. Left subclavian central line stable posi tion. Endotracheal and nasogastric tubes have been removed. The cardiomediastinal contours are unrema rkable. Osseous structures are intact. CONCLUSION: Minimal bibasilar subsegmental atelectasis. Status post CABG. Electronically signed by: Fredis Avila MD 04/17/2018 5:08 AM EDT
[2018-04-17 05:18] LABS: Alanine Aminotransferase 40 U/L (12-78); Albumin 3.2 g/dL (3.4-5.0); Alkaline Phosphatase 56 U/L (45-117); Anion Gap 9 meq/L (5-15); Aspartate Aminotransferase 40 U/L (15-37); Blood Urea Nitrogen 11 mg/dL (7-18); Calcium 8.8 mg/dL (8.5-10.1); Carbon Dioxide 22.6 meq/L (21.0-32.0); Chloride 108 meq/L (98-107); Glomerular Filtration Rate 82 mL/min (>89); Glucose,Random 193 mg/dL (74-106); Magnesium 2.1 mg/dL (1.5-2.5); Phosphorus 2.4 mg/dL (2.5-4.9); Potassium 4.3 meq/L (3.5-5.1); Sodium 140 meq/L (136-145); Total Protein 5.9 g/dL (6.4-8.2)
[2018-04-17] MEDS: Insulin Regular (For Infusion) 100 UNIT in Sodium Chlor 0.9% Inj 99 ML IV.CONT PRN (06:38)
[2018-04-17] MEDS ORDERED: Sod Phosphate/Sod Biphosphate (Adult) Enema 133 ML Bottle RECTAL PRN (09:16)
[2018-04-17] MEDS ORDERED: Bisacodyl 10 MG Supp RECTAL PRN (09:16)
[2018-04-17] MEDS ORDERED: Dextrose 50% in Water 50 ML Vial IV.PUSH PRN (09:16)
[2018-04-17] MEDS ORDERED: Insulin Detemir Inj 1,000 UNIT/10 ML Vial SQ ONE (09:45)
[2018-04-17] MEDS: Mupirocin 2% Nasal Oint Topical Syringe EACH NARE SCH ×4 (09:47→20:42)
--- NOTE | 2018-04-17 10:06 | P.DIET ---
Nutritional Evaluation Type of nutrition evaluation: initial Screening comments: MDC for diet education s/p CABG x 3. Patient Navigator to provide education. Consult RD if complexities with diet education arise.
[2018-04-17] MEDS: amLODIPine 5 MG Tablet PO SCH (10:48)
[2018-04-17] MEDS: Metoprolol Tartrate 25 MG Tablet PO SCH ×2 (10:55→21:06)
--- NOTE | 2018-04-17 11:37 | P.PNCA ---
- Note Subjective/Hospital Course: 67-year-old male who was complaining of some chest pain, burning dull pain a couple weeks ago and it reoccurred. He underwent an echocardiogram that showed ejection fraction 55%, some subtle inferior posterior wall motion abnormality. He was then electively brought in for a heart catheterization which showed proximal LAD of 70%, the circumflex was 99%, the OM 99%, the ramus 70%. We were consulted for multivessel coronary disease. PAST MEDICAL HISTORY: Includes depression, hyperlipidemia, hypertension, hypothyroidism, right bundle branch block. He does have some migraine headaches. pt doing well , no chest pain . for surgery in am 04/16 surgery : CABG x 3, REBOLLEDO to LAd - good, SVG to RI - good, SVG to OM1 - good, L EVH [id number], 500cc cell saver, 1000 EBL extubated after surgery 04/17 doing well on nasal cannula pain controlled + pericardial rub add Toradol prn leave chest tubes in eval for rehab at discharge on ASA, BB stain, amiodarone Objective: Vital Signs - 24 hr 04/16/18 12:05 04/16/18 12:34 04/16/18 12:58 Temperature 97.1 F L Pulse Rate 80 Respiratory Rate 12 12 12 Blood Pressure 134/57 L Pulse Oximetry 04/16/18 13:25 04/16/18 13:40 04/16/18 14:32 Temperature Pulse Rate Respiratory Rate Blood Pressure Pulse Oximetry 95 95 96 04/16/18 14:50 04/16/18 15:00 04/16/18 17:22 Temperature 98.5 F 98.7 F Pulse Rate 83 Respiratory Rate 16 16 Blood Pressure 125/65 Pulse Oximetry 95 04/16/18 18:47 04/16/18 19:00 04/16/18 23:00 Temperature 99.1 F 99 F Pulse Rate 91 H 97 H Respiratory Rate 16 16 18 Blood Pressure 131/64 115/51 L Pulse Oximetry 93 L 04/17/18 01:11 04/17/18 03:00 04/17/18 07:00 Temperature 99 F 98.4 F Pulse Rate 100 H 86 Respiratory Rate 14 16 Blood Pressure 126/67 131/53 L Pulse Oximetry 94 L 96 04/17/18 07:32 Temperature Pulse Rate Respiratory Rate Blood Pressure Pulse Oximetry 95 GENERAL: A&O x 3 SKIN: Warm and dry. prevena dressing to chest , incision intact left leg HEAD: Normocephalic. EYES: No scleral icterus. No injection or drainage. NECK: Supple, trachea midline. No JVD or lymphadenopathy. CARDIOVASCULAR: Regular rate and rhythm without murmurs, gallops, or rubs. RESPIRATORY: Breath sounds equal bilaterally. No accessory muscle use. chest tube to wall suction, no air leak / drained 170cc/ 12 hrs GASTROINTESTINAL: Abdomen soft, non-tender, nondistended. MUSCULOSKELETAL: No cyanosis, or edema. BACK: Nontender without obvious deformity. No CVA tenderness. Labs: Laboratory Results - last 12 hr 04/15/18 04/16/18 04/17/18 10:10 23:22 00:35 WBC RBC Hgb Hct MCV MCH MCHC RDW Plt Count MPV Neut % (Auto) Lymph % (Auto) [place] % (Auto) Eos % (Auto) Baso % (Auto) Neut # (Auto) Lymph # (Auto) [place] # (Auto) Eos # (Auto) Baso # (Auto) WBC Differential Differential Comment Sodium Potassium Chloride Carbon Dioxide Anion Gap BUN Creatinine Estimated GFR POC Glucose 138 H 139 H Random Glucose Calcium Phosphorus Magnesium Total Bilirubin AST ALT Alkaline Phosphatase Total Protein Albumin Blood Type A Negative Antibody Screen Negative MTS Gel Crossmatch See Detail 04/17/18 04/17/18 04/17/18 02:17 04:25 04:27 WBC RBC Hgb Hct MCV MCH MCHC RDW Plt Count MPV Neut % (Auto) Lymph % (Auto) [place] % (Auto) Eos % (Auto) Baso % (Auto) Neut # (Auto) Lymph # (Auto) [place] # (Auto) Eos # (Auto) Baso # (Auto) WBC Differential Differential Comment Sodium Potassium Chloride Carbon Dioxide Anion Gap BUN Creatinine Estimated GFR POC Glucose 101 199 H 206 H Random Glucose Calcium Phosphorus Magnesium Total Bilirubin AST ALT Alkaline Phosphatase Total Protein Albumin Blood Type Antibody Screen MTS Gel Crossmatch 04/17/18 04/17/18 04/17/18 04:30 04:30 05:22 WBC 19.7 H D RBC 3.98 L Hgb 12.0 L D Hct 34.9 L MCV 87.7 MCH 30.1 MCHC 34.3 RDW 13.6 Plt Count 250 MPV 8.5 Neut % (Auto) 88.8 H Lymph % (Auto) 3.9 L [place] % (Auto) 7.0 Eos % (Auto) 0.0 Baso % (Auto) 0.3 Neut # (Auto) 17.5 H Lymph # (Auto) 0.8 L [place] # (Auto) 1.4 H Eos # (Auto) 0.0 Baso # (Auto) 0.1 WBC Differential . Differential Comment Auto diff final Sodium 140 Potassium 4.3 Chloride 108 H Carbon Dioxide 22.6 Anion Gap 9 BUN 11 Creatinine 0.92 Estimated GFR 82 L POC Glucose 166 H Random Glucose 193 H Calcium 8.8 Phosphorus 2.4 L Magnesium 2.1 Total Bilirubin 0.5 AST 40 H ALT 40 Alkaline Phosphatase 56 Total Protein 5.9 L D Albumin 3.2 L D Blood Type Antibody Screen MTS Gel Crossmatch 04/17/18 04/17/18 04/17/18 06:23 07:33 09:22 WBC RBC Hgb Hct MCV MCH MCHC RDW Plt Count MPV Neut % (Auto) Lymph % (Auto) [place] % (Auto) Eos % (Auto) Baso % (Auto) Neut # (Auto) Lymph # (Auto) [place] # (Auto) Eos # (Auto) Baso # (Auto) WBC Differential Differential Comment Sodium Potassium Chloride Carbon Dioxide Anion Gap BUN Creatinine Estimated GFR POC Glucose 128 H 125 H 134 H Random Glucose Calcium Phosphorus Magnesium Total Bilirubin AST ALT Alkaline Phosphatase Total Protein Albumin Blood Type Antibody Screen MTS Gel Crossmatch 04/17/18 10:08 WBC RBC Hgb Hct MCV MCH MCHC RDW Plt Count MPV Neut % (Auto) Lymph % (Auto) [place] % (Auto) Eos % (Auto) Baso % (Auto) Neut # (Auto) Lymph # (Auto) [place] # (Auto) Eos # (Auto) Baso # (Auto) WBC Differential Differential Comment Sodium Potassium Chloride Carbon Dioxide Anion Gap BUN Creatinine Estimated GFR POC Glucose 136 H Random Glucose Calcium Phosphorus Magnesium Total Bilirubin AST ALT Alkaline Phosphatase Total Protein Albumin Blood Type Antibody Screen MTS Gel Crossmatch Result Diagrams: 04/17/18 04:30 04/17/18 04:30 Telemetry: NSR RBBB - Plan (2) CAD (coronary artery disease) Plan: ASA, statin, BB , amiodarone OOB, ambulate pulm toileting consult CM to eval for rehab (3) Hyperlipidemia Plan: on statin, heart healthy diet (5) CAD (coronary artery disease), [place] coronary artery Plan: ASA, statin , BB for surgery in am (2) CAD (coronary artery disease) Qualifiers: Coronary Disease-Associated Artery/Lesion type: [place] artery (3) Hyperlipidemia Qualifiers: Hyperlipidemia type: pure hypercholesterolemia Qualified Code(s): E78.00 - Pure hypercholesterolemia, unspecified; E78.0 - Pure hypercholesterolemia
[2018-04-17] MEDS: Insulin NovoLOG Aspart Correctional Sugar Inj SQ SCH ×3 (14:03→21:23)
--- NOTE | 2018-04-17 17:33 | ECG ---
Date Performed: 04/17/2018 Time Performed: 05:15:32 PTAGE: 67 years EKG: Sinus rhythm Leftward axis Right bundle branch block Abnormal ECG NO PREVIOUS TRACING DOCTOR: Saad Tran Interpretating Date/Time 04/17/2018 17:31:31
--- NOTE | 2018-04-17 18:22 | P.PNCA ---
Subjective Interval history: Extubated and up to the chair Doing well No complaints, appropriate chest pain along sternotomy Physical Exam Vital signs: Vital Signs 04/16/18 18:47 04/16/18 19:00 04/16/18 23:00 Temperature 99.1 F 99 F Pulse Rate 91 H 97 H Respiratory Rate 16 16 18 Blood Pressure 131/64 115/51 L Pulse Oximetry 93 L 04/17/18 01:11 04/17/18 03:00 04/17/18 07:00 Temperature 99 F 98.4 F Pulse Rate 100 H 86 Respiratory Rate 14 16 Blood Pressure 126/67 131/53 L Pulse Oximetry 94 L 96 04/17/18 07:32 04/17/18 10:47 04/17/18 11:00 Temperature 98.7 F Pulse Rate 77 Respiratory Rate 16 16 Blood Pressure 135/72 Pulse Oximetry 95 04/17/18 12:37 04/17/18 15:00 04/17/18 18:18 Temperature 98.0 F Pulse Rate 84 Respiratory Rate 16 16 18 Blood Pressure 134/69 Pulse Oximetry 98 Intake & Output 04/16/18 04/17/18 04/17/18 18:59 06:59 18:59 Intake Total 5045.5 / 5045.5 1850.9 / 1850.9 1640 / 1640 Output Total 3150 / 3150 3945 / 3945 1190 / 1190 Balance 1895.5 / 1895.5 -2094.1 / -2094.1 450 / 450 Weight 83.5 kg Intake: IV 345.5 / 345.5 170.9 / 170.9 200 / 200 Cleviprex Inj 25 mg In 50 ml @ 0.6 / 0.6 1 MG/HR 2 mls/hr IV.CONT TITRATE PRN Rx#:[id number] Precedex Inj 200 mcg In 50 ml @ 15.8 / 15.8 0.2 MCG/KG/HR 3.85 mls/hr IV. CONT TITRATE PRN Rx#:[id number] NovoLIN R (IV Infusion) 100 29.1 / 29.1 70.9 / 70.9 UNIT In NS Inj 99 ML @ 3 UNITS/ HR 3 mls/hr IV.CONT TITRATE PRN Rx#:[id number] Ofirmev Inj 1,000 mg In 100 ml 200 / 200 @ 400 mls/hr IV.SIG Q6H CLEMENT Rx# :[id number] Ancef Inj 1,000 MG In NS Inj 100 / 100 100 / 100 200 / 200 100 ML @ 200 mls/hr IV.SIG Q8H CLEMENT Rx#:[id number] Oral 1200 / 1200 1680 / 1680 1440 / 1440 Anesthesia Amount 3000 / 3000 Cell Saver Amount 500 / 500 Output: Urine 950 / 950 Estimated Blood Loss 1000 / 1000 Urine Amount (Catheter) 1849 3775 / 3775 Indwelling Urethral Catheter 1849 3775 / 3775 Chest Tube Drainage 300 / 300 170 / 170 240 / 240 #2 Left Pleural Y Connected 300 / 300 170 / 170 240 / 240 Other: Date of Last Bowel Movement 04/14/18 Narrative: GENERAL: NAD, AAOx3 SKIN: Warm and dry. HEAD: Atraumatic. Normocephalic. EYES: Pupils equal and round. No scleral icterus. No injection or drainage. ENT: No nasal bleeding or discharge. Mucous membranes pink and moist. NECK: Trachea midline. No JVD. CARDIOVASCULAR: Regular rate and rhythm. Sternotomy clean/dry/intact RESPIRATORY: No accessory muscle use. Clear to auscultation. Breath sounds equal bilaterally. GASTROINTESTINAL: Abdomen soft, non-tender, nondistended. Hepatic and splenic margins not palpable. MUSCULOSKELETAL: Extremities without clubbing, cyanosis, or edema. No obvious deformities. NEUROLOGICAL: No focal deficits - Urinary Catheter Management Indwelling Urethral Catheter Cath placed during this visit: yes, but has since been removed by the nurse Reason for continuing: Decision to DC catheter Insertion date: 04/16/18 Insertion time: 08:40 Removal date: 04/17/18 Removal time: 06:30 Assessment and Plan - Assessment (1) Multi-vessel coronary artery stenosis Code(s): I25.10 - Atherosclerotic heart disease of [place] coronary artery without angina pectoris Status: Acute (2) CAD (coronary artery disease) Code(s): I25.10 - Atherosclerotic heart disease of [place] coronary artery without angina pectoris Status: Acute (3) CAD (coronary artery disease), [place] coronary artery Code(s): I25.10 - Atherosclerotic heart disease of [place] coronary artery without angina pectoris Status: Acute (4) Hyperlipidemia Code(s): E78.5 - Hyperlipidemia, unspecified Status: Acute - Plan 1) CAD/[place]/MVCAD s/p CABG x3 POD #1 REBOLLEDO to LAD SVG to Ramus SVG to OM 2) ASA/Amio/statin/BB 3) Moved to Cardio step down 4) Follow up with Dr. Wiley on discharge 5) Dr. Cordon available PRN over the weekend (2) CAD (coronary artery disease) Qualifiers: Coronary Disease-Associated Artery/Lesion type: [place] artery (4) Hyperlipidemia Qualifiers: Hyperlipidemia type: pure hypercholesterolemia Qualified Code(s): E78.00 - Pure hypercholesterolemia, unspecified; E78.0 - Pure hypercholesterolemia
[2018-04-17] MEDS: Amitriptyline 25 MG Tablet PO SCH (21:03)
[2018-04-17] MEDS: Docusate Sodium 100 MG Capsule PO SCH (21:04)
[2018-04-18] MEDS: Insulin NovoLOG Aspart Correctional Sugar Inj SQ SCH ×4 (01:00→17:05)
[2018-04-18] MEDS: Amiodarone 200 MG Tablet PO SCH ×2 (05:12→20:04)
[2018-04-18] MEDS: Docusate Sodium 100 MG Capsule PO SCH ×2 (08:39→20:05)
[2018-04-18] MEDS: Multivitamin/Minerals Therapeutic Tablet PO SCH (08:39)
[2018-04-18] MEDS: Mupirocin 2% Nasal Oint Topical Syringe EACH NARE SCH (08:40)
[2018-04-18] MEDS: Metoprolol Tartrate 25 MG Tablet PO SCH ×2 (08:40→20:04)
[2018-04-18] MEDS: Polyethylene Glycol 3350 17 GM Packet PO SCH (08:41)
--- NOTE | 2018-04-18 10:37 | P.PNCA ---
- Note CVT: Post Op Day #: 2 Subjective/Hospital Course: 67-year-old male who was complaining of some chest pain, burning dull pain a couple weeks ago and it reoccurred. He underwent an echocardiogram that showed ejection fraction 55%, some subtle inferior posterior wall motion abnormality. He was then electively brought in for a heart catheterization which showed proximal LAD of 70%, the circumflex was 99%, the OM 99%, the ramus 70%. We were consulted for multivessel coronary disease. PAST MEDICAL HISTORY: Includes depression, hyperlipidemia, hypertension, hypothyroidism, right bundle branch block. He does have some migraine headaches. pt doing well , no chest pain . for surgery in am 04/16 surgery : CABG x 3, REBOLLEDO to LAd - good, SVG to RI - good, SVG to OM1 - good, L EVH [id number], 500cc cell saver, 1000 EBL extubated after surgery 04/17 doing well on nasal cannula pain controlled + pericardial rub add Toradol prn leave chest tubes in eval for rehab at discharge on ASA, BB stain, amiodarone Objective: Vital Signs - 24 hr 04/17/18 10:47 04/17/18 11:00 04/17/18 12:37 Temperature 98.7 F Pulse Rate 77 Respiratory Rate 16 16 16 Blood Pressure 135/72 Pulse Oximetry 04/17/18 15:00 04/17/18 18:18 04/17/18 19:00 Temperature 98.0 F 99 F Pulse Rate 84 89 Respiratory Rate 16 18 16 Blood Pressure 134/69 122/65 Pulse Oximetry 98 94 L 04/17/18 20:00 04/17/18 23:00 04/18/18 01:48 Temperature 99.1 F Pulse Rate 87 79 Respiratory Rate 16 Blood Pressure 124/69 Pulse Oximetry 94 L 93 L 04/18/18 03:00 04/18/18 07:15 04/18/18 08:00 Temperature 98.9 F 98.1 F Pulse Rate 72 86 88 Respiratory Rate 16 20 Blood Pressure 129/72 136/87 Pulse Oximetry 95 94 L 94 L 04/18/18 08:06 04/18/18 09:06 Temperature Pulse Rate 90 77 Respiratory Rate Blood Pressure Pulse Oximetry Labs: Laboratory Results - last 12 hr 04/15/18 04/18/18 04/18/18 10:10 00:34 05:06 POC Glucose 111 H 121 H MTS Gel Crossmatch See Detail 04/18/18 07:44 POC Glucose 137 H MTS Gel Crossmatch Result Diagrams: 04/17/18 04:30 04/17/18 04:30 Imaging: Carotid Doppler Study 04/14/18 16:01 CONCLUSION: 1. Right Internal Carotid Artery: No significant plaque or narrowing. 2. Left Internal Carotid Artery: No significant plaque or narrowing. Lower Extremity Ultrasound 04/14/18 16:01 CONCLUSION: Greater saphenous vein measurements as above. Venous Doppler Study 04/14/18 16:01 CONCLUSION: Negative study. No venous thrombosis of either lower extremity. Chest X-Ray 04/17/18 05:00 CONCLUSION: Minimal bibasilar subsegmental atelectasis. Status post CABG. Cardiovascular: RRR Telemetry: NSR Pulmonary: CTA GI/: NABS, NT Incision: dry and intact CT: 30ml/12hrs - Plan (2) CAD (coronary artery disease) Plan: ASA, statin, BB , amiodarone OOB, ambulate pulm toileting consult CM to eval for rehab (3) Hyperlipidemia Plan: on statin, heart healthy diet Doing very well Chest tubes removed Encourage ambulation Increase lopressor, decrease amiodarone dose Stim BM Transfer to SNF Friday (2) CAD (coronary artery disease) Qualifiers: Coronary Disease-Associated Artery/Lesion type: [place] artery (3) Hyperlipidemia Qualifiers: Hyperlipidemia type: pure hypercholesterolemia Qualified Code(s): E78.00 - Pure hypercholesterolemia, unspecified; E78.0 - Pure hypercholesterolemia
[2018-04-18] MEDS: Amitriptyline 25 MG Tablet PO SCH (20:04)
[2018-04-19] MEDS: Insulin NovoLOG Aspart Correctional Sugar Inj SQ SCH ×5 (00:12→21:23)
[2018-04-19] MEDS: Amiodarone 200 MG Tablet PO SCH ×2 (08:57→21:16)
[2018-04-19] MEDS: Metoprolol Tartrate 25 MG Tablet PO SCH ×2 (08:57→21:17)
[2018-04-19] MEDS: Multivitamin/Minerals Therapeutic Tablet PO SCH (08:57)
[2018-04-19] MEDS: Docusate Sodium 100 MG Capsule PO SCH ×2 (08:57→21:16)
[2018-04-19] MEDS: Polyethylene Glycol 3350 17 GM Packet PO SCH (08:58)
--- NOTE | 2018-04-19 10:44 | P.PNCA ---
- Note CVT: Post Op Day #: 3 Subjective/Hospital Course: 67-year-old male who was complaining of some chest pain, burning dull pain a couple weeks ago and it reoccurred. He underwent an echocardiogram that showed ejection fraction 55%, some subtle inferior posterior wall motion abnormality. He was then electively brought in for a heart catheterization which showed proximal LAD of 70%, the circumflex was 99%, the OM 99%, the ramus 70%. We were consulted for multivessel coronary disease. PAST MEDICAL HISTORY: Includes depression, hyperlipidemia, hypertension, hypothyroidism, right bundle branch block. He does have some migraine headaches. pt doing well , no chest pain . for surgery in am 04/16 surgery : CABG x 3, REBOLLEDO to LAd - good, SVG to RI - good, SVG to OM1 - good, L EVH [id number], 500cc cell saver, 1000 EBL extubated after surgery 04/17 doing well on nasal cannula pain controlled + pericardial rub add Toradol prn leave chest tubes in eval for rehab at discharge on ASA, BB stain, amiodarone 04/19/18 No complaints. Doing well. No BM Objective: Vital Signs - 24 hr 04/18/18 11:00 04/18/18 12:00 04/18/18 13:00 Temperature 97.9 F Pulse Rate 71 78 77 Respiratory Rate 20 Blood Pressure 114/72 Pulse Oximetry 95 04/18/18 14:00 04/18/18 14:55 04/18/18 15:00 Temperature 98.5 F Pulse Rate 76 77 75 Respiratory Rate 20 Blood Pressure 118/62 Pulse Oximetry 94 L 04/18/18 16:00 04/18/18 17:07 04/18/18 18:00 Temperature Pulse Rate 84 86 79 Respiratory Rate Blood Pressure Pulse Oximetry 04/18/18 19:00 04/18/18 20:00 04/18/18 21:00 Temperature Pulse Rate 89 84 75 Respiratory Rate 18 Blood Pressure 115/65 Pulse Oximetry 94 L 94 L 04/18/18 22:00 04/18/18 23:00 04/19/18 00:00 Temperature 98.9 F Pulse Rate 69 71 74 Respiratory Rate 16 Blood Pressure 114/64 Pulse Oximetry 95 04/19/18 01:00 04/19/18 02:00 04/19/18 03:00 Temperature 98.5 F Pulse Rate 74 70 72 Respiratory Rate 16 Blood Pressure 125/73 Pulse Oximetry 97 04/19/18 04:00 04/19/18 05:00 04/19/18 06:00 Temperature Pulse Rate 72 74 73 Respiratory Rate Blood Pressure Pulse Oximetry 04/19/18 07:00 04/19/18 07:59 04/19/18 08:00 Temperature 98.9 F Pulse Rate 74 83 Respiratory Rate 20 Blood Pressure 123/74 Pulse Oximetry 94 L 94 L 04/19/18 09:00 04/19/18 09:07 04/19/18 10:00 Temperature Pulse Rate 82 89 Respiratory Rate Blood Pressure Pulse Oximetry 91 L 04/19/18 10:37 Temperature 99.0 F Pulse Rate 90 Respiratory Rate 18 Blood Pressure 134/69 Pulse Oximetry 93 L Labs: Laboratory Results - last 12 hr 04/19/18 04/19/18 00:02 07:23 POC Glucose 118 H 107 Result Diagrams: 04/17/18 04:30 04/17/18 04:30 Imaging: Carotid Doppler Study 04/14/18 16:01 CONCLUSION: 1. Right Internal Carotid Artery: No significant plaque or narrowing. 2. Left Internal Carotid Artery: No significant plaque or narrowing. Lower Extremity Ultrasound 04/14/18 16:01 CONCLUSION: Greater saphenous vein measurements as above. Venous Doppler Study 04/14/18 16:01 CONCLUSION: Negative study. No venous thrombosis of either lower extremity. Chest X-Ray 04/17/18 05:00 CONCLUSION: Minimal bibasilar subsegmental atelectasis. Status post CABG. Cardiovascular: RRR Telemetry: NSR Pulmonary: CTA GI/: NABS Incision: dry and intact - Plan (2) CAD (coronary artery disease) Plan: ASA, statin, BB , amiodarone OOB, ambulate pulm toileting consult CM to eval for rehab (3) Hyperlipidemia Plan: on statin, heart healthy diet Stim BM D/C home tomorrow (2) CAD (coronary artery disease) Qualifiers: Coronary Disease-Associated Artery/Lesion type: [place] artery (3) Hyperlipidemia Qualifiers: Hyperlipidemia type: pure hypercholesterolemia Qualified Code(s): E78.00 - Pure hypercholesterolemia, unspecified; E78.0 - Pure hypercholesterolemia
[2018-04-19] MEDS: Amitriptyline 25 MG Tablet PO SCH (21:16)
[2018-04-20] MEDS: Insulin NovoLOG Aspart Correctional Sugar Inj SQ SCH (08:04)
[2018-04-20] MEDS: Multivitamin/Minerals Therapeutic Tablet PO SCH (08:54)
[2018-04-20] MEDS: Docusate Sodium 100 MG Capsule PO SCH (08:54)
[2018-04-20] MEDS: Metoprolol Tartrate 25 MG Tablet PO SCH (08:54)
[2018-04-20] MEDS: Amiodarone 200 MG Tablet PO SCH (08:54)
[2018-04-20] MEDS: Polyethylene Glycol 3350 17 GM Packet PO SCH (08:56)
--- NOTE | 2018-04-20 11:00 | P.DS ---
Date of admission: 04/14/18 10:43 Primary care physician: Sami Barnes DO Attending physician on discharge: Bhakti Pizarro Anticipated date of discharge: 04/20/18 Brief History from admission: Patient is a 67-year-old gentleman who came into the hospital as a direct admission for cardiac catheterization has history of multivessel coronary artery disease was seen by Dr. DAVIS and sent in for cardiac catheterization. Had the cardiac catheterization yesterday by Dr. Rivera. 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 Migraines Past surgical history is significant for the cardiac catheterization with left main of 30% proximal LAD of 70% left circumflex is subtotally occluded with multiple obtuse marginal filling via collaterals RCA 40% ramus of 70% Allergies no known drug allergies His home medications included aspirin 81 mg daily Crestor 20 mg daily Metoprolol succinate 25 mg daily Norvasc 5 mg daily Amitriptyline 25 mg daily Synthroid 25 MCG's daily Nitro sublingual as needed Family history significant for grandfather having myocardial infarction at the age of 93 Multiple brothers who have undergone stents and bypass in her late 60s and early 70s Social history drinks a few times a weeks occasional cigar DS: Diagnosis - Discharge Diagnosis (1) S/P CABG x 3 Status: Acute (2) CAD (coronary artery disease) Status: Acute (3) Hyperlipidemia Status: Chronic (4) Unstable angina Status: Acute (5) CAD (coronary artery disease), [place] coronary artery Status: Acute DS: Medications - Discharge Medications Prescriptions: amiodarone 200 mg PO Q12HR #28 tab aspirin 81 mg PO DAILY #30 tab docusate sodium [DOK] 100 mg PO BID #60 cap hlgdyjbg-fvgs-JB-calcium-mins [Thera M Plus (ferrous fumarat)] 1 tab PO DAILY # 30 tab oxycodone-acetaminophen 1 tab PO Q4H PRN #40 tab PRN Reason: Pain Scale 1 To 4 DS: Summary Hospital Course: 04/16 surgery : CABG x 3, REBOLLEDO to LAd - good, SVG to RI - good, SVG to OM1 - good, L EVH [id number], 500cc cell saver, 1000 EBL extubated after surgery 04/17 doing well on nasal cannula pain controlled + pericardial rub add Toradol prn leave chest tubes in eval for rehab at discharge on ASA, BB stain, amiodarone 04/19/18 No complaints. Doing well. No BM - Time Spent with Patient Total time spent providing and/or coordinating discharge services: Greater than 30 minutes - Quality: AMI Clinical Trial Participant: No - Quality: VTE Deep Vein Thrombosis/Pulmonary Embolism Present on Admission: No Exam Vital signs: Vital Signs 04/19/18 11:00 04/19/18 12:00 04/19/18 13:00 Temperature Pulse Rate 79 76 82 Respiratory Rate Blood Pressure Pulse Oximetry 04/19/18 14:00 04/19/18 14:50 04/19/18 14:58 Temperature 98.6 F Pulse Rate 84 83 83 Respiratory Rate 20 Blood Pressure 147/71 H Pulse Oximetry 94 L 04/19/18 15:32 04/19/18 16:04 04/19/18 17:00 Temperature Pulse Rate 80 93 H Respiratory Rate Blood Pressure Pulse Oximetry 93 L 04/19/18 17:09 04/19/18 18:00 04/19/18 19:00 Temperature 98.9 F Pulse Rate 98 H 90 Respiratory Rate Blood Pressure 143/75 H Pulse Oximetry 95 96 04/19/18 20:20 04/19/18 21:00 04/19/18 22:00 Temperature Pulse Rate 86 77 Respiratory Rate Blood Pressure Pulse Oximetry 92 L 04/19/18 23:00 04/20/18 00:00 04/20/18 01:00 Temperature 99.3 F Pulse Rate 78 77 79 Respiratory Rate Blood Pressure 118/63 Pulse Oximetry 90 L 04/20/18 02:00 04/20/18 03:00 04/20/18 04:00 Temperature 98.8 F Pulse Rate 79 77 74 Respiratory Rate Blood Pressure 114/59 L Pulse Oximetry 93 L 04/20/18 05:00 04/20/18 06:00 04/20/18 07:00 Temperature 98.0 F Pulse Rate 81 81 82 Respiratory Rate Blood Pressure 135/67 Pulse Oximetry 93 L 04/20/18 08:00 Temperature Pulse Rate 95 H Respiratory Rate Blood Pressure Pulse Oximetry 93 L Intake & Output 04/19/18 04/20/18 04/20/18 18:59 06:59 18:59 Intake Total 1200 / 1200 840 / 840 Output Total 1150 / 1150 1500 / 1500 Balance 50 / 50 -660 / -660 Weight 78.5 kg Intake: Oral 1200 / 1200 840 / 840 Output: Urine 1150 / 1150 1500 / 1500 Other: Date of Last Bowel Movement 04/19/18 # Bowel Movements 1 - Constitutional no acute distress - Routine HEENT Exam Head: Present: normocephalic, atraumatic ENT: Present: mucous membranes moist - Routine Neck Exam Present: supple, full ROM - Routine Chest/Breast/Axilla Exam Chest wall: Present: tenderness - Routine Respiratory Exam Present: CTA bilaterally - Routine Cardiovascular Exam Present: RRR, S1, S2 - Routine Abdominal Exam Present: soft, normoactive bowel sounds - Routine Extremities Exam Present: full ROM, pulses intact, normal capillary refill - Routine Skin Exam Present: intact, wounds Comments: prevena dressing to chest incision intact to left leg - Routine Neurological Exam Present: alert, oriented X3 - Routine Psychiatric Exam Present: normal affect, normal thought process Results Procedures completed during hospitalization: (1) Unstable angina Date of procedure: 04/16/18 Procedure: CABG x 3 REBOLLEDO to LAd - good SVG to RI - good SVG to OM1 - good EVH Anesthesia: GETA Surgeon: Bhakti Pizarro MD 04/14/2018 PROCEDURE: Left heart catheterization, coronary angiogram, moderate sedation 40 minutes, IFR LAD. PREPROCEDURE DIAGNOSIS: Unstable angina on multiple antianginals, suspected significant coronary artery disease. POSTPROCEDURE DIAGNOSIS: Multivessel coronary artery disease, unstable angina. Labs on day of discharge: Labs from last 24 hours 04/20/18 04/19/18 04/19/18 07:50 21:22 15:36 POC Glucose 125 H 91 117 H - Impressions ITS Impressions Carotid Doppler Study 04/14/18 16:01 CONCLUSION: 1. Right Internal Carotid Artery: No significant plaque or narrowing. 2. Left Internal Carotid Artery: No significant plaque or narrowing. Lower Extremity Ultrasound 04/14/18 16:01 CONCLUSION: Greater saphenous vein measurements as above. Venous Doppler Study 04/14/18 16:01 CONCLUSION: Negative study. No venous thrombosis of either lower extremity. Chest X-Ray 04/17/18 05:00 CONCLUSION: Minimal bibasilar subsegmental atelectasis. Status post CABG. Discharge Plan - Discharge Disposition Patient Disposition: W/Home Health Service - Discharge Condition Condition: Good - Discharge Order Discharge Orders: Discharge Order (Routine); Ordered 04/20/18 Ordered By: Bhakti Pizarro - Discharge Details Anticipated Discharge Date: 04/20/18 - Physicians Team Primary Care Provider: Sami Barnes Attending Provider: Bhakti Pizarro Other Providers: Nitesh Rivera DO - Rxs /Orders / Referrals /Forms Prescriptions: New amiodarone 200 mg Tablet 200 mg PO Q12HR Qty: 28 RF: 0 aspirin 81 mg Tablet,Chewable 81 mg PO DAILY Qty: 30 RF: 2 docusate sodium [DOK] 100 mg Capsule 100 mg PO BID Qty: 60 dfjaislh-jjsr-KS-calcium-mins [Thera M Plus (ferrous fumarat)] 9 mg iron-400 mcg Tablet 1 tab PO DAILY Qty: 30 RF: 2 oxycodone-acetaminophen 5-325 mg Tablet 1 tab PO Q4H PRN (Reason: Pain Scale 1 To 4) Qty: 40 RF: 0 Continue amitriptyline 25 mg Tablet 25 mg PO DAILY amlodipine 5 mg Tablet 5 mg PO DAILY levothyroxine 25 mcg Tablet 25 mcg PO DAILY metoprolol succinate 25 mg Tablet Extended Release 24 Hr 25 mg PO DAILY rosuvastatin 20 mg Tablet 20 mg PO DAILY Ambulatory Orders / Order Sets / DME: XR chest 2V PA&LAT (Routine) Timeframe: 2 Weeks Location: Determined by Patient Ordered By: Kary Valdes Basic Metabolic Panel (Routine) Timeframe: 2 Weeks Location: Determined by Patient Ordered By: Kary Valdes Complete Blood Count NO Diff (Routine) Timeframe: 2 Weeks Location: Determined by Patient Ordered By: Kary Valdes Referrals: Bhakti Pizarro MD [Physician] - See Instructions ( Your appointment has been scheduled for [05/07/18] at [11:15] If you cannot make this appointment, please call the office to reschedule ) Sami Barnes DO [Primary Care Provider] - See Instructions ( Your appointment has been scheduled for [05/06/18] at [09:40] If you cannot make this appointment, please call the office to reschedule ) Shelby Davis MD [Physician] - See Instructions ( Your appointment has been scheduled for [05/25/18] at [11:30] If you cannot make this appointment, please call the office to reschedule ) - Discharge Instructions Additional Instructions: PREVENA Single Use Negative Wound Therapy System Caregiver Instruction Sheet 1. A Prevena dressing system was applied to the chest incision during surgery , to promote wound healing. It works via a suction device (negative pressure wound therapy) to remove low to moderate levels of exudate (drainage) and infectious materials. We recommend that the device stay in place for up to seven days, from day of surgery. 2. Day of Surgery___/09/22 Day of Removal ___/ 3. The dressing should only be removed by a health career services coordinator. Please arrange removal of device to coincide with Home Health visit and or with Nursing staff at Rehab 4. If skin reddening or irritation of skin occurs, or excessive drainage, please notify the Cardiovascular Surgeons office at [phone]. 5. Light showering is permissible; however the pump should be disconnected and placed in safe location, where it will not get wet. The dressing should not be exposed to direct spray or submerged in water. No bath tub / shower only. Ensure the end of the tubing attached to the dressing is facing down so that water does not enter the top of the tube. 6. To remove Prevena dressing: press purple button to turn off device / remove the suction. Then disconnect the tubing from the pump. The fixation strips should be stretched away from the skin and the dressing lifted at one corner and peeled back until it has been fully removed. 7. After removal, it is ok to shower daily using liquid dial soap and clean wash cloth, rinse and pat dry, and leave incision open to air dry. For any concerns regarding Prevena dressing, and or wounds, please contact Kelly Vargas, patient navigator at [phone] or notify the Cardiovascular Surgeons office at [phone]. Incentive spirometry Q1 hr x 10, while awake, also use acapella device hourly whole awake Sternal Breast Bone Precautions: NO pushing or pulling, ( pt must use sternal pillow to support chest with all activities and with coughing ( takes up to 3 months breast bone to heal ) Daily incision care: ok to shower daily, no tub bath. Wash all incisions with liquid dial soap, clean wash cloth to each site, rinse and pat dry. Observe for any signs of infection, such as drainage which is dark yellow, richard, green or foul smelling. Immediately report to the surgeon any drainage from the chest incision, or legs, and for any abnormal drainage from the chest tube sites. Notify surgeon if any temp >101.5 degrees F. When specialty dressing removed/ or if you do not have one, continue to shower daily as above, then rinse and pat incision dry and paint with betadine daily x 5 days. Allow steri strips to fall off if you have any. Avoid lotions, creams, salves, oils, etc. for the first month Please see attached forms for additional instructions regarding post Open Heart specialty wound vacuum dressings. TERESO or Prevena , Dressing to be removed by Nursing staff on For Dr. Pizarro patients , please obtain CBC, BMP, PA & Lat CXR in 2 weeks, results to Dr. Pizarro ( prescription will be given) ( ) (Tele: [phone]) , F/U appointment: as per [place] instructions: PCP in 2 weeks, CV surgeon 2 weeks, Soap Drier Operator 3-4 weeks For any questions regarding incisions/ dressing / meds / post op care or above Symptoms, Friday 8am-5pm Heart & Vascular Surgery Office ( Dr. Lloyd & Dr. Pizarro), After Hours / Nights (5pm -8am) Weekends and Holidays Please call [facility] Card[facility] ([facility]) Charge Nurse
--- NOTE | 2018-04-20 11:23 | P.PNCA ---
Subjective Interval history: No events over the weekend Feels great Physical Exam Vital signs: Vital Signs 04/19/18 12:00 04/19/18 13:00 04/19/18 14:00 Temperature Pulse Rate 76 82 84 Respiratory Rate Blood Pressure Pulse Oximetry 04/19/18 14:50 04/19/18 14:58 04/19/18 15:32 Temperature 98.6 F Pulse Rate 83 83 80 Respiratory Rate 20 Blood Pressure 147/71 H Pulse Oximetry 94 L 04/19/18 16:04 04/19/18 17:00 04/19/18 17:09 Temperature Pulse Rate 93 H Respiratory Rate Blood Pressure Pulse Oximetry 93 L 95 04/19/18 18:00 04/19/18 19:00 04/19/18 20:20 Temperature 98.9 F Pulse Rate 98 H 90 Respiratory Rate Blood Pressure 143/75 H Pulse Oximetry 96 92 L 04/19/18 21:00 04/19/18 22:00 04/19/18 23:00 Temperature 99.3 F Pulse Rate 86 77 78 Respiratory Rate Blood Pressure 118/63 Pulse Oximetry 90 L 04/20/18 00:00 04/20/18 01:00 04/20/18 02:00 Temperature Pulse Rate 77 79 79 Respiratory Rate Blood Pressure Pulse Oximetry 04/20/18 03:00 04/20/18 04:00 04/20/18 05:00 Temperature 98.8 F Pulse Rate 77 74 81 Respiratory Rate Blood Pressure 114/59 L Pulse Oximetry 93 L 04/20/18 06:00 04/20/18 07:00 04/20/18 08:00 Temperature 98.0 F Pulse Rate 81 82 95 H Respiratory Rate Blood Pressure 135/67 Pulse Oximetry 93 L 93 L 04/20/18 09:00 04/20/18 10:00 Temperature Pulse Rate 85 80 Respiratory Rate Blood Pressure Pulse Oximetry Intake & Output 04/19/18 04/20/18 04/20/18 18:59 06:59 18:59 Intake Total 1200 / 1200 840 / 840 Output Total 1150 / 1150 1500 / 1500 Balance 50 / 50 -660 / -660 Weight 78.5 kg Intake: Oral 1200 / 1200 840 / 840 Output: Urine 1150 / 1150 1500 / 1500 Other: Date of Last Bowel Movement 04/19/18 # Bowel Movements 1 Narrative: GENERAL: NAD, AAOx3 SKIN: Warm and dry. HEAD: Atraumatic. Normocephalic. EYES: Pupils equal and round. No scleral icterus. No injection or drainage. ENT: No nasal bleeding or discharge. Mucous membranes pink and moist. NECK: Trachea midline. No JVD. CARDIOVASCULAR: Regular rate and rhythm. Sternotomy clean/dry/intact RESPIRATORY: No accessory muscle use. Clear to auscultation. Breath sounds equal bilaterally. GASTROINTESTINAL: Abdomen soft, non-tender, nondistended. Hepatic and splenic margins not palpable. MUSCULOSKELETAL: Extremities without clubbing, cyanosis, or edema. No obvious deformities. NEUROLOGICAL: No focal deficits - Urinary Catheter Management Indwelling Urethral Catheter Cath placed during this visit: yes, but has since been removed by the nurse Reason for continuing: Decision to DC catheter Insertion date: 04/16/18 Insertion time: 08:40 Removal date: 04/17/18 Removal time: 06:30 Assessment and Plan - Assessment (1) Multi-vessel coronary artery stenosis Code(s): I25.10 - Atherosclerotic heart disease of [place] coronary artery without angina pectoris Status: Acute (2) CAD (coronary artery disease) Code(s): I25.10 - Atherosclerotic heart disease of [place] coronary artery without angina pectoris Status: Acute (3) CAD (coronary artery disease), [place] coronary artery Code(s): I25.10 - Atherosclerotic heart disease of [place] coronary artery without angina pectoris Status: Acute (4) Hyperlipidemia Code(s): E78.5 - Hyperlipidemia, unspecified Status: Chronic - Plan 1) CAD/[place]/MVCAD s/p CABG x3 POD #4 REBOLLEDO to LAD SVG to Ramus SVG to OM 2) ASA/Amio/statin/BB 3) Follow up with Dr. Wiley on discharge 4) Cardiovascularly stable for discharge Progress Note: Quality - AMI Clinical Trial Participant: No (2) CAD (coronary artery disease) Qualifiers: Coronary Disease-Associated Artery/Lesion type: [place] artery (4) Hyperlipidemia Qualifiers: Hyperlipidemia type: pure hypercholesterolemia Qualified Code(s): E78.00 - Pure hypercholesterolemia, unspecified; E78.0 - Pure hypercholesterolemia
== END 2018-04-20 12:20 | disposition home health service (06) ==
LOC: HCAT 06:47 → HDIC 06:53 → HCAT 06:54 → HDIC 10:38 → HCIS 10:43 → HCPC 04-15 17:55 → HCVI 04-16 12:05 → HCPC 04-17 14:13
PROVIDERS: ADMIT Thoracic Surgery (Cardiothoracic Vascular Surgery); ATTEND Thoracic Surgery (Cardiothoracic Vascular Surgery)